=== PATIENT | female | born 1970 | race Caucasian/White ===

== ENCOUNTER 2020-03-24 07:58 | Outpatient (REF) | payer BC, SELFPAY ==
[2020-03-24 11:03] LABS: MANUAL DIFF FLAG NO
[2020-03-24 11:19] LABS: Basophils Percent Auto 0.5 % (0-2); Eosinophils Absolute Auto 0.1 X10*3/uL (0.0-0.4); Eosinophils Percent Auto 3.1 % (0-4); Hematocrit 34.8 % (37-47); Hemoglobin 11.6 g/dl (12.0-16.0); Lymphocytes Absolute Auto 1.8 X10*3/uL (1.2-4.9); Lymphocytes Percent Auto 42.5 % (20-40); Mean Corpuscular HGB Conc 33.3 g/dl (31.0-35.0); Mean Corpuscular Hemoglobin 31.6 pg (27.0-33.0); Mean Corpuscular Volume 94.8 fL (80-98); Mean Platelet Volume 10.2 fL (9.4-12.3); Monocytes Absolute Auto 0.3 X10*3/uL (0.1-1.2); Monocytes Percent Auto 8.1 % (2-11); Neutrophils Absolute Auto 1.9 X10*3/uL (2.0-8.3); Neutrophils Percent Auto 45.8 % (45-73); Platelet Count 174 X10*3/uL (160-400); Red Blood Count 3.67 X10*6/uL (4.20-5.50); Red Cell Distribution Width 13.3 % (11.0-16.0); White Blood Count 4.2 X10*3/uL (4.8-10.8)
[2020-03-24 11:37] LABS: Glucose Urine UA NEG (NEG); Leukocyte Esterase Urine NEG (NEG); Nitrite Urine NEG (NEG); Specific Gravity - Urine 1.025 (1.005-1.025); Urine Blood NEG (NEG); Urine Ketones NEG (NEG); Urine Protein NEG (NEG-TRACE)
[2020-03-24 11:45] LABS: Sodium 139 mmol/L (135-145)
[2020-03-24 11:46] LABS: Alanine Aminotransferase 13 U/L (0-31); Albumin Level 4.3 g/dL (3.5-5.0); Alkaline Phosphatase 44 U/L (39-117); Anion Gap 11 (12-20); Aspartate Amino Transferase 12 U/L (5-31); Bilirubin Total 0.7 mg/dL (0.0-1.0); Blood Urea Nitrogen 22 mg/dL (9-16); Calcium 9.1 mg/dL (8.4-10.2); Carbon Dioxide 28 mmol/L (22-29); Chloride 104 mmol/L (96-108); Cholesterol 170 mg/dL; Estimated Glomerular Filt Rate > 60; Glucose Fasting 89 mg/dL (60-99); HDL Cholesterol 67 mg/dL; LDL Cholesterol Calculated 98 mg/dl; Potassium 4.2 mmol/l (3.3-5.1); Total Protein 6.7 g/dL (6.5-8.0); Triglycerides 29 mg/dL
[2020-03-24 11:47] LABS: Appearance Urine HAZY; Color Urine YELLOW
[2020-03-24 12:08] LABS: Calcium Oxalate Crystals Urine TRACE /LPF; RBC Urine 0-2 /HPF (0); Squamous Epithelial Cell Urine TRACE /LPF; WBC Urine 0 /HPF (0-4)
== END 2020-03-24 07:59 | disposition home or self-care (01) ==
LOC: HO.HMGCLDS 07:58
PROVIDERS: PCP Internal Medicine; Visit Provider Internal Medicine
DX: E78.5 Hyperlipidemia, unspecified (principal)
CPT/HCPCS: 36415; 80053; 80061; 81001; 85025

== ENCOUNTER 2020-03-28 13:10 | Outpatient (REF) | payer BC, SELFPAY ==
[2020-03-28 14:35] LABS: Iron 103 mcg/dL (30-160); Percent Iron Saturation 37 % (15-50); Total Iron Binding Capacity 281 mcg/dL (228-428); Unsaturated Iron Binding 178 ug/dL
[2020-03-28 14:49] LABS: Folate 18.4 ng/mL (> or = 4.0); Vitamin B12 720 pg/mL (200-900)
== END 2020-03-28 13:11 | disposition home or self-care (01) ==
LOC: HO.HMGCLDS 13:10
PROVIDERS: PCP Internal Medicine; Visit Provider Internal Medicine
DX: D64.9 Anemia, unspecified (principal)
CPT/HCPCS: 82607; 82746; 83540

== ENCOUNTER 2021-04-09 11:39 | Outpatient (REF) | payer OTHER, SELFPAY ==
--- NOTE | ~2021-04-09 | US_ITS ---
EXAMINATION: US THYROID CLINICAL INFORMATION: Goiter COMPARISON: None TECHNIQUE: Linear transducer perez-scale and color Doppler examination with attention to the region of the thyroid. FINDINGS: SIZE: Measurements of the thyroid lobes and nodules are given in sagittal, anteroposterior and transverse dimensions respectively. Right Thyroid Lobe: 5.7 x 2.0 x 1.8 cm, volume 10.7 mL. Parenchyma: The gland echotexture is heterogeneous. Thyroid vascularity is increased. Left Thyroid Lobe: 5.7 x 1.6 x 1.9 cm, volume 9.1 mL. Parenchyma: The gland echotexture is heterogeneous. Thyroid vascularity is increased. Isthmus: 0.7 cm in maximum AP dimension. Estimated total number of nodules greater than or equal to 1 cm: 0. Education Manager nodules are described as follows: 1. Location: Left lower medial. Size: 0.4 x 0.3 x 0.4 cm, volume 0.02 mL. Nodule characteristics: Composition: Cystic(0). ACR TI-RADS total points: 0 ACR TI-RADS category: 1 NODES: No lymphadenopathy is seen in the tissue surrounding the thyroid gland. US/US thyroid IMPRESSION: Heterogeneous hypervascular slightly enlarged gland with a single tiny cystic nodule which requires no follow-up. ACR TI-RADS RECOMMENDATION REFERENCE: Ultrasound-guided fine-needle aspiration, followup ultrasound, no further follow up. * TR1 (0 point) and TR 2 (2 points): No FNA or follow up * TR3 (3 points): FNA if more than or equal to 2.5 cm in maximum dimension, followup ultrasound in 1, 3 and 5 years if 1.5 to 2.4 cm in maximum dimension. * TR4 (4-6 points): FNA if more than or equal to 1.5 cm in maximum dimension, followup ultrasound in 1, 2, 3 and 5 years if 1 to 1.4 cm in maximum dimension. * TR5 (more than or equal to 7 points): FNA if more than or equal to 1 cm in maximum dimension, followup ultrasound every year for 5 years if 0.5 to 0.9 cm in maximum dimension. * TR3, TR4 or TR5 nodules that are below the size threshold for follow up receive no follow up.
== END 2021-04-09 11:40 | disposition home or self-care (01) ==
LOC: HO.HMGCX 11:39
PROVIDERS: PCP Internal Medicine; Visit Provider Internal Medicine
DX: E04.9 Nontoxic goiter, unspecified (principal)
CPT/HCPCS: 76536

== ENCOUNTER 2021-05-14 08:44 | Outpatient (REF) | payer OTHER, SELFPAY ==
[2021-05-14 11:49] LABS: Hematocrit 36.7 % (37.0-47.0); Hemoglobin 12.2 g/dl (12.0-16.0); Mean Corpuscular HGB Conc 33.2 g/dl (31.0-35.0); Mean Corpuscular Hemoglobin 31.3 pg (27.0-33.0); Mean Corpuscular Volume 94.1 fL (80.0-98.0); Mean Platelet Volume 10.3 fL (9.4-12.3); Platelet Count 175 X10*3/uL (160-400); Red Cell Distribution Width 13.3 % (11.0-16.0); White Blood Count 4.8 X10*3/uL (4.8-10.8)
[2021-05-14 12:05] LABS: Alanine Aminotransferase 14 U/L (0-31); Albumin Level 4.2 g/dL (3.5-5.0); Alkaline Phosphatase 48 U/L (39-117); Anion Gap 10 (12-20); Aspartate Amino Transferase 14 U/L (5-31); Bilirubin Total 0.5 mg/dL (0.0-1.0); Blood Urea Nitrogen 22 mg/dL (9-16); Calcium 9.4 mg/dL (8.4-10.2); Carbon Dioxide 27 mmol/L (22-29); Chloride 108 mmol/L (96-108); Cholesterol 199 mg/dL; Estimated Glomerular Filt Rate > 60; Glucose Fasting 102 mg/dL (60-99); HDL Cholesterol 63 mg/dL; Iron 88 mcg/dL (30-160); LDL Cholesterol Calculated 128 mg/dl; Percent Iron Saturation 33 % (15-50); Potassium 4.1 mmol/L (3.3-5.1); Sodium 141 mmol/L (135-145); Total Iron Binding Capacity 267 mcg/dL (228-428); Total Protein 6.9 g/dL (6.5-8.0); Triglycerides 44 mg/dL; Unsaturated Iron Binding 179 ug/dL
[2021-05-14 12:25] LABS: TSH reflex Free T4 2.56 uIU/mL (0.32-4.0)
== END 2021-05-14 08:45 | disposition home or self-care (01) ==
LOC: HO.HMGCLDS 08:44
PROVIDERS: Visit Provider Internal Medicine
DX: D64.9 Anemia, unspecified (principal); E78.5 Hyperlipidemia, unspecified
CPT/HCPCS: 36415; 80053; 80061; 83540; 84443; 85027

== ENCOUNTER 2022-06-22 09:20 | Outpatient (REF) | payer OTHER, SELFPAY ==
[2022-06-22 11:19] LABS: MANUAL DIFF FLAG NO
[2022-06-22 11:21] LABS: Appearance Urine Turbid; Color Urine Yellow; Glucose Urine UA Negative (Negative); Leukocyte Esterase Urine Negative (Negative); Nitrite Urine Negative (Negative); UMIC TRIGGER UACC YES; Urine Blood Small (1+) (Negative); Urine Ketones Negative (Negative); Urine Protein Negative (Neg-Trace)
[2022-06-22 11:28] LABS: Basophils Percent Auto 0.7 % (0-2); Eosinophils Absolute Auto 0.1 X10*3/uL (0.0-0.4); Hematocrit 36.1 % (37.0-47.0); Hemoglobin 12.1 g/dl (12.0-16.0); Imm Gran Abs Auto 0.01 X10*3/uL (0.00-0.03); Imm Gran Pct Auto 0.2 % (0.0-0.4); Lymphocytes Absolute Auto 1.6 X10*3/uL (1.2-4.9); Lymphocytes Percent Auto 37.8 % (20-40); Mean Corpuscular HGB Conc 33.5 g/dl (31.0-35.0); Mean Corpuscular Hemoglobin 30.5 pg (27.0-33.0); Mean Corpuscular Volume 90.9 fL (80.0-98.0); Mean Platelet Volume 10.1 fL (9.4-12.3); Monocytes Absolute Auto 0.3 X10*3/uL (0.1-1.2); Monocytes Percent Auto 7.3 % (2-11); Neutrophils Absolute Auto 2.1 x10*3/uL (2.0-8.3); Platelet Count 178 X10*3/uL (160-400); Red Blood Count 3.97 X10*6/uL (4.20-5.50); Red Cell Distribution Width 13.2 % (11.0-16.0); White Blood Count 4.1 X10*3/uL (4.8-10.8)
[2022-06-22 11:29] LABS: Bacteria Urine None Seen (None Seen); Hyaline Casts Urine 0-2 /LPF (0-2); RBC Urine 0-2 /HPF (0-2); Squamous Epithelial Cell Urine 0-2 /HPF (0-2); WBC Urine 0-5 /HPF (0-5)
[2022-06-22 11:44] LABS: Alanine Aminotransferase 15 U/L (0-31); Albumin Level 4.2 g/dL (3.5-5.0); Alkaline Phosphatase 58 U/L (39-117); Anion Gap 10 (12-20); Aspartate Amino Transferase 14 U/L (5-31); Bilirubin Total 0.8 mg/dL (0.0-1.0); Blood Urea Nitrogen 16 mg/dL (9-16); Calcium 8.9 mg/dL (8.4-10.2); Carbon Dioxide 27 mmol/L (22-29); Chloride 107 mmol/L (96-108); Cholesterol 175 mg/dL; Estimated Glomerular Filt Rate > 60; Glucose Fasting 90 mg/dL (60-99); HDL Cholesterol 52 mg/dL; LDL Cholesterol Calculated 115 mg/dl; Potassium 4.3 mmol/L (3.3-5.1); Sodium 140 mmol/L (135-145); Total Protein 6.5 g/dL (6.5-8.0); Triglycerides 43 mg/dL
[2022-06-22 12:16] LABS: Folate 15.8 ng/mL (> or = 4.0); TSH reflex Free T4 1.46 uIU/mL (0.32-4.0); Vitamin B12 553 pg/mL (200-900); Vitamin D 25-OH Total 29.7 ng/mL (>30)
== END 2022-06-22 09:21 | disposition home or self-care (01) ==
LOC: HO.HMGCLDS 09:20
PROVIDERS: PCP Internal Medicine; Visit Provider Internal Medicine
DX: Z00.00 Encounter for general adult medical examination without abnormal findings (principal); E78.5 Hyperlipidemia, unspecified
CPT/HCPCS: 36415; 80053; 80061; 81001; 82306; 82607; 82746; 84443; 85025

== ENCOUNTER 2022-07-06 11:15 | Outpatient (REF) | payer OTHER, SELFPAY ==
[2022-07-06 13:44] LABS: Appearance Urine Turbid; Color Urine Yellow; Glucose Urine UA Negative (Negative); Leukocyte Esterase Urine Negative (Negative); Nitrite Urine Negative (Negative); PH 5.5 (5.0-9.0); Specific Gravity - Urine 1.025 (1.005-1.025); Urine Blood Negative (Negative); Urine Ketones Negative (Negative); Urine Protein Negative (Neg-Trace)
[2022-07-06 13:46] LABS: Bacteria Urine None Seen (None Seen); Hyaline Casts Urine 0-2 /LPF (0-2); RBC Urine 0-2 /HPF (0-2); Squamous Epithelial Cell Urine 0-2 /HPF (0-2); WBC Urine 0-5 /HPF (0-5)
== END 2022-07-06 11:16 | disposition home or self-care (01) ==
LOC: HO.HMGCLDS 11:15
PROVIDERS: PCP Internal Medicine; Visit Provider Internal Medicine
DX: E78.5 Hyperlipidemia, unspecified (principal); R31.29 Other microscopic hematuria
CPT/HCPCS: 81001; 81003

== ENCOUNTER 2022-11-11 12:17 | Outpatient (AMB) | payer OTHER, SELFPAY ==
--- NOTE | 2022-11-11 12:21 | AM.OFFWIN_ITS ---
Intake Vital Signs 11/11/22 12:24 BP 120/88 Blood Pressure Location Lt brachial Position Sitting Pulse 78 Pulse Source Pulse Oximeter Temp 98.4 F Temp Source Temporal Artery Scan Pulse Oximetry (%) 98 Oxygen Delivery Method Room Air Intake Visit Reasons: EP Cough 1 month/Headache, Pain AB/Back Intake Note: Patient here for a cough thats been present for about a month which comes and goes. She states she has sinus pressure and headaches. Patient Tobacco Use Status: Never used Tobacco Allergies codeine Allergy (Unknown, Verified 11/12/22 05:57) vomiting palpitation oxycodone Allergy (Unknown, Verified 11/12/22 05:57) vomiting palpitations metoclopramide [From Reglan] Allergy (Verified 11/12/22 05:57) tingiling on face tylenol with codeine Allergy (Mild, Uncoded 11/12/22 05:57) vomiting contrast Allergy (Uncoded 11/12/22 05:57) Hives Medication List - Last Reconciled 11/12/22 by Gopal Sheikh MD azelastine intranasal azithromycin take 500 mg today (day 1), then 250 mg for 4 days (days 2-5) PO famotidine 40 mg PO DAILY multivitamin 1 tab PO DAILY prednisone 60 mg (3 x 20 mg) PO DAILY Do you need a note to return to daycare/school/sports/work: Yes HPI EP Cough 1 month/Headache, Pain AB/Back HPI Details 52-year-old female presents to the office for a sick visit. Patient is reporting symptoms of productive cough for the past 2 weeks. Postnasal drip is present. No fevers or chills. 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 No shortness of breath. Tested negative for COVID. [facility] Medical History Abdominal pain Allergies Anemia Annual physical exam Asthma Cough Enlarged thyroid Hemorrhoids Hyperlipemia Hyperlipidemia IBS (irritable bowel syndrome) Lymphadenopathy, abdominal Surgical History H/O colonoscopy H/O spinal fusion No pertinent past surgical history Family History Father No problems noted. Mother HTN (hypertension) Maternal Grandmother Breast cancer Paternal Grandmother Colon cancer Social History Housing: House Alcohol intake: current Alcohol intake frequency: holidays/special occasions only Patient Tobacco Use Status: Never used Tobacco e-Cigarette/Vaping Use: Never Used Current occupational status: employed Cognitive needs: No Hearing needs: No Vision needs: Yes Physical Exam Vital Signs: Last Vital Signs Temp 98.4 F 11/11/22 12:24 Pulse 78 11/11/22 12:24 BP 120/88 11/11/22 12:24 Pulse Ox 98 11/11/22 12:24 Oxygen Delivery Method Room Air 11/11/22 12:24 Const General: cooperative and healthy appearing Nutritional Appearance: well nourished Orientation/consciousness: patient oriented x3 Limitations: no limitations HEENT Head: Yes normal to inspection Eyes General: appearance normal, both eyes and all related structures Neck Neck: Yes normal visual inspection Chest Chest palpation & inspection: normal palpation of entire chest wall Resp Effort & Inspection: normal respiratory effort Neuro General: patient oriented x3 Assessment & Plan Assessment & Plan (1) Upper respiratory tract infection: Code(s): J06.9 - Acute upper respiratory infection, unspecified Plan: Antibiotics ordered. Increase fluid intake. Tylenol for aches and pains. If symptoms worsen, follow-up here for a recheck. Medications: New azithromycin take 500 mg today (day 1), then 250 mg for 4 days (days 2-5) PO 6 tabs 0RF prednisone 60 mg (3 x 20 mg) PO DAILY 9 tabs 0RF Coding Level of Care Code Est Pt Level 3 (63525) Diagnoses Upper respiratory tract infection J06.9
[2022-11-11 12:24] VITALS: BP 120/88; PULSE 78; TEMP 36.9; O2SAT 98
== END 2022-11-11 13:51 | disposition home or self-care (01) ==
PROVIDERS: PCP Internal Medicine; Visit Provider Internal Medicine
DX: J06.9 Acute upper respiratory infection, unspecified (principal)
CPT/HCPCS: 99213

== ENCOUNTER 2023-01-02 09:51 | Outpatient (AMB) | payer OTHER, SELFPAY ==
--- NOTE | 2023-01-02 09:55 | A.OFFVIS_ITS ---
Intake Vital Signs 01/02/23 09:56 Height 5 ft 6 in Weight 211 lb 13.828 oz BMI 34.2 BP 126/72 Blood Pressure Location Lt brachial Position Sitting Pulse 71 Pulse Source Pulse Oximeter Temp 97.9 F Temp Source Skin Pulse Oximetry (%) 98 Oxygen Delivery Method Room Air Intake Visit Reasons: Pain in unspecified joint Intake Note: New patient here for unspecified joint pains. c/o chel hand tinggling, upper back tingling Aerospace Medicine Physician Required: No Accompanied by: Self / Same As Patient Allergies codeine Allergy (Unknown, Verified 01/02/23 09:56) vomiting palpitation oxycodone Allergy (Unknown, Verified 01/02/23 09:56) vomiting palpitations metoclopramide [From Reglan] Allergy (Verified 01/02/23 09:56) tingiling on face tylenol with codeine Allergy (Mild, Uncoded 01/02/23 09:56) vomiting contrast Allergy (Uncoded 01/02/23 09:56) Hives Medication List - Last Reconciled 01/02/23 by [place] MD azelastine intranasal famotidine 40 mg PO DAILY multivitamin 1 tab PO DAILY HPI HPI Comments History of Present Illness Details The patient presents for evaluation of discomfort in her hands. Mostly she describes this as pain over the PIP joints in the left hand. Occasionally she has noted similar pains in the right hand. She also feels that the sensation in the left 2nd through 4th fingers does not always seem normal. There is a distant history, 15 years ago, of carpal tunnel release surgery and she does not think the current symptoms were similar. She also gets some pain across the MTP joints at times with some leg swelling. She has had some neck stiffness as well that was helped with career services coordinator and massage. The discomfort in the fingers seems to be better this month after the neck massage. There was no injury to the hands that she can recall. She does not experience any color change or triggering. Four years ago she had low back pain radiating down the left leg. This was helped with lumbar disc surgery. She presently uses some [id number] creams for the hands. [facility] Medical History (Updated 01/02/23 @ 10:33 by [place] MD) Annual physical exam Asthma Enlarged thyroid Cough Allergies Anemia Lymphadenopathy, abdominal IBS (irritable bowel syndrome) Abdominal pain Hyperlipemia Hyperlipidemia Hemorrhoids Surgical History (Updated 01/02/23 @ 10:04 by TOMASA Contreras) Hx of carpal tunnel repair H/O spinal fusion H/O colonoscopy No pertinent past surgical history Family History (Updated 01/02/23 @ 10:02 by TOMASA Contreras) Father No problems noted. 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 She thinks this is stimulated by occasional courses of prednisone for allergy symptoms. There is also some intermittent sweating during the day. Negative for appetite change, fever, chills, malaise and fatigue Eyes Details: Occasional itchy eyes. Negative for vision change, dry eyes,headaches and dizziness ENT Details: Negative for hearing change, tinnitus, oral ulcer, nose bleeds and oral dryness. Card Details: Negative chest pain, edema and syncope Resp Details: Negative for SOB, cough and wheezing GI Details: Negative indigestion/heartburn, nausea, abdominal pain, bowel changes, diarrhea, constipation and bloody stool. Details: Negative for dysuria, hematuria, nocturia, decreased force/flow and genital discharge Skin/Breast Details: Negative for itching, rash, hives, Raynaud's symptoms, sun sensitivity, and skin cancer Neuro Details: Occasional left hand tingling. Negative for epilepsy, palsy, stroke, changes in speech and weakness Psych Details: Negative for anxiety, depression and stress Endo Details: Negative for polyuria and polydypsia Yoni/Lymph Details: Negative for excessive bruising or bleeding. Physical Exam Vital Signs: Last Vital Signs Temp 97.9 F 01/02/23 09:56 Pulse 71 01/02/23 09:56 BP 126/72 01/02/23 09:56 Pulse Ox 98 01/02/23 09:56 Oxygen Delivery Method Room Air 01/02/23 09:56 BMI result Body Mass Index 34.2 APPEARANCE: Patient in no acute distress EYES no redness, pupils equal and reactive to light, eyelids normal EARS: External ear normal, canal clear and tympanic membrane normal. NOSE/SINUS: Airflow through both nares, no nasal discharge, no bleeding THROAT: Oral mucosa moist, no ulcerations NECK: No thyromegaly or masses, no adenopathy, trachea midline. HEART: Regulrar rhythm, S1-S2 heard, no murmurs, rubs or gallops. LUNG: Clear to percussion and auscultation ABD: Normal bowel sounds, no organomegaly, masses or tenderness. EXTREMITIES: Trace ankle and pedal edema. Now calf tenderness, normal peripheral pulses. NEURO: Oriented and alert x3. No focal weakness. Reflexes symmetric. Gait normal. SKIN: No inflammatory or neoplastic lesions. Normal color and turgor JOINT EXAM:.?? Cervical Spine:.? Full range of motion with mild discomfort at the extremes. No tenderness. Thoracic Spine:.? No scoliosis.? No tenderness on palpation. Lumbar Spine:.? Alignment normal.? Full range of motion without pain, no tenderness. Chest Wall:.? No tenderness, swelling, increased warmth or erythema. Hands:.? Right: Normal pain-free range of motion without tenderness, swelling, increased warmth or erythema. No thenar atrophy or sensory loss. Left: Pain- free range of motion. There is some minimal tenderness at the 2nd through 4th PIP and the 2nd 3rd PIP joints. No swelling however is appreciated. There is questionable sensory loss at the tip of the 2nd 3rd fingers. There is no apparent weakness. No muscle atrophy. Wrists:.? Normal pain-free range of motion without tenderness, swelling, increased warmth or erythema. Negative Phalen's sign. Elbows:. Normal pain-free range of motion without tenderness, swelling, increased warmth or erythema. Shoulders:.?? Full range of motion without pain. No tenderness, weakness, swelling, increased warmth or erythema. Hips:.? Full range of motion without pain. Hip bursa:.? No tenderness. Knees:.?? Normal pain-free range of motion with slight patellofemoral crepitus. No effusion, tenderness, swelling, increased warmth or erythema.? Ankles:.? Normal pain-free range of motion without tenderness, swelling, increased warmth or erythema. Feet: Left: Normal pain-free range of motion with right some slight tenderness in the instep and the 2nd and 3rd MTP joints. These areas are not red or swollen. No other areas of tenderness. Right: Normal pain-free range of motion without tenderness,joint swelling, increased warmth or erythema. Tender points:.? No tenderness to digital palpation at the occiput, trapezius, second rib, lateral epicondyle, knees, greater trochanter and gluteal area bilaterally. ? Assessment & Plan Assessment & Plan (1) Paresthesia of finger: Code(s): R20.2 - Paresthesia of skin (2) Bilateral hand pain: Code(s): M79.641 - Pain in right hand; M79.642 - Pain in left hand Plan The patient has a few months of hand symptoms consisting mostly of some pain in the fingers more on the left hand than the right. There is also some dysesthesias or paresthesias in the left hand. Exam shows the joints to be tender but no swelling. This was suggested early arthropathy; the location would suggest some early osteoarthritis. The numbness could be some nerve entrapment from her previously diagnosed carpal tunnel syndrome or another area of nerve entrapment in the left upper extremity or cervical spine. Her symptoms seem to be improving at this point so I do not think it needs to be pursued but if continues or worsens further workup in Neurology would be appropriate. I will check for some markers of inflammation, rheumatoid factor and CCP antibody. We will get back to her with the results. She will return if she starts to get swelling and or more pain in the hands. Orders: Orders Erythrocyte Sedimentation Rate Today M79.641 - Pain in right hand, M79.642 - Pain in left hand C Reactive Protein Today M79.641 - Pain in right hand, M79.642 - Pain in left hand Cyclic Citrullinated Peptide Today M79.641 - Pain in right hand, M79.642 - Pain in left hand Rheumatoid Factor Today M79.641 - Pain in right hand, M79.642 - Pain in left hand Coding Level of Care Code New Pt Level 3 (76796) Diagnoses Paresthesia of finger R20.2 Bilateral hand pain M79.641; M79.642
[2023-01-02 09:56] VITALS: BP 126/72; PULSE 71; TEMP 36.6; O2SAT 98; BMI 34.2
== END 2023-01-02 10:48 | disposition home or self-care (01) ==
PROVIDERS: PCP Internal Medicine; Visit Provider Internal Medicine Rheumatology
DX: R20.2 Paresthesia of skin (principal); M79.641 Pain in right hand; M79.642 Pain in left hand
CPT/HCPCS: 99203

== ENCOUNTER 2023-01-02 09:51 | Outpatient (REF) | payer OTHER, SELFPAY ==
[2023-01-02 12:37] LABS: Rheumatoid Factor < 13.0 IU/mL (<15.0)
[2023-01-02 12:46] LABS: C Reactive Protein 0.64 mg/dL (< or = 0.50)
[2023-01-02 12:51] LABS: Erythrocyte Sedimentation Rate 14 MM/HR (0-20)
[2023-01-06 16:24] LABS: Cyclic Citrullinated Peptide <16 UNITS
== END 2023-01-02 09:52 | disposition home or self-care (01) ==
LOC: HO.LAB 09:51
PROVIDERS: PCP Internal Medicine; Visit Provider Internal Medicine Rheumatology
DX: R20.2 Paresthesia of skin (principal); M79.641 Pain in right hand; M79.642 Pain in left hand
CPT/HCPCS: 36415; 85652; 86140; 86200; 86431

== ENCOUNTER 2023-01-04 11:27 | Outpatient (AMB) | payer OTHER, SELFPAY ==
[2023-01-04 13:05] VITALS: BP 140/80; PULSE 87; TEMP 36.6; O2SAT 99; BMI 34.1
--- NOTE | 2023-01-04 13:05 | AM.OFFWIN_ITS ---
Intake Vital Signs 01/04/23 13:05 Height 5 ft 6 in Weight 211 lb BMI 34.1 BP 140/80 H Blood Pressure Location Rt brachial Position Sitting Pulse 87 Pulse Source Pulse Oximeter Temp 97.8 F Temp Source Temporal Artery Scan Pulse Oximetry (%) 99 Intake Visit Reasons: EST/continuous cough Intake Note: pt is here for c/o continuous cough Patient Tobacco Use Status: Never used Tobacco Allergies codeine Allergy (Unknown, Verified 01/04/23 13:06) vomiting palpitation oxycodone Allergy (Unknown, Verified 01/04/23 13:06) vomiting palpitations metoclopramide [From Reglan] Allergy (Verified 01/04/23 13:06) tingiling on face tylenol with codeine Allergy (Mild, Uncoded 01/02/23 09:56) vomiting contrast Allergy (Uncoded 01/02/23 09:56) Hives Do you need a note to return to daycare/school/sports/work: Yes HPI EST/continuous cough HPI Details Patient is a 52-year-old female who comes to the walk-in clinic complaining of acute onset of persistent cough, that sometimes turns into coughing fits and causes phlegm production that she can get back/vomit with. She has had multiple episodes of this, with this being her 2nd 1 in the past year. Apparently the last episode was only about 3 months ago however, and she was written for prednisone which cleared the reactive cough symptoms. She states that she has had full GI workup and a partial allergy workup to help discover the etiology for the cough. She is diagnosed with GERD, but it was not found inconclusive that this was the underlying etiology or associated cause of the cough. She takes famotidine and is supposed to be maintaining strict diet, although she minutes to dietary indiscretions. She states that she is already aware of this, and plans to be stricter for here on out. She had a limited allergy workup, however she is not doing applied she shots as her insurance fell through with her specialists. She is currently trying to figure out if she can still see the specialist. She does still take daily oral allergy medication, and allergies have been considered the likely trigger for this, possibly food related, although allergy workup has so far been unrevealing and limited. No shortness of breath, difficulty swallowing or eating, nausea or diarrhea, blood in the vomit or stool, coffee-ground stool, urinary symptoms, runny nose or sore throat, itchy eyes, ear pain or discharge, chest pain, abdominal pain, drooling, or other significant associated symptoms. [facility] Medical History (Updated 01/06/23 @ 11:19 by JUAN C Goins) Annual physical exam Asthma Enlarged thyroid Cough Allergies Anemia Lymphadenopathy, abdominal IBS (irritable bowel syndrome) Abdominal pain Hyperlipemia Hyperlipidemia Hemorrhoids Surgical History (Updated 01/02/23 @ 10:04 by TOMASA Contreras) Hx of carpal tunnel repair H/O spinal fusion H/O colonoscopy No pertinent past surgical history Family History (Updated 01/02/23 @ 10:02 by TOMASA Contreras) Father No problems noted. 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 Cognitive needs: No Hearing needs: No Vision needs: Yes Review of Systems Const All systems reviewed & are unremarkable except as noted in HPI and below Physical Exam Vital Signs: Last Vital Signs Temp 97.8 F 01/04/23 13:05 Pulse 87 01/04/23 13:05 BP 140/80 H 01/04/23 13:05 Pulse Ox 99 01/04/23 13:05 BMI result Body Mass Index 34.1 Const General: cooperative, healthy appearing, comfortable, no acute distress, alert, awake, Physically active and well groomed; No anxious, diaphoretic, ill appearing, intoxicated appearing, poor hygiene or tired appearing Nutritional Appearance: average body habitus Limitations: no limitations HEENT Head: Yes normal to inspection, Yes normocephalic and Yes atraumatic Face and sinus: Yes normal facial exam, Yes sinuses nontender and Yes face symmetric Mouth: Normal oral and palatal mucosa present, lip normal and tongue normal Throat: Yes posterior oropharynx normal, No peritonsillar mass, No postnasal drainage, No uvular edema and No cobblestoning Eyes General: appearance normal, both eyes and all related structures Neck Neck: Yes normal visual inspection, Yes no lymphadenopathy, Yes trachea midline, Yes supple and No anterior neck swelling Chest Chest palpation & inspection: normal palpation of entire chest wall Resp Effort & Inspection: normal respiratory effort, able to speak in complete sentences, no audible wheezes, Actively coughing (She did have frequent coughing, and 1 coughing fit) Quality: actively coughing, no grunting, not labored, no nasal flaring, no retractions and symmetric chest movement Auscultation: clear to auscultation bilaterally, no crackles, no rales, no rhonchi, no wheezes, lung sounds not diminished and No rub present Cardio Rate: regular rate Rhythm: regular rhythm Skin Other: Good color, warm and dry Psych Appearance: grossly normal Mental Status: mental status grossly normal Speech and movement: Normal speech and movement present Affect: normal affect Attitude: cooperative Thought process: Normal thought process present Insight: Good insight present (Psych) Judgement: Good judgement present (Psych) Assessment & Plan Assessment & Plan (1) Cough: Code(s): R05.9 - Cough, unspecified Qualifiers: Cough type: acute Qualified Code(s): R05.1 - Acute cough Plan: Patient has had acute exacerbation of a reactive cough that she has experienced multiple times in the past. Apparently after an almost complete workup, it has been determined to be likely triggered by allergies that are possibly food related, although allergy workup was so far unrevealing and she has had trouble seeing fire technician again due to insurance issue. However she has had a full GI workup that did result in famotidine being taken daily for presumed GERD, along with restrictive diet. She states that she has not been as compliant recently with the diet, and we discussed adhering to that starting today. She is overall stable, with no other symptoms of anaphylaxis or respiratory distress and except for the cough does not have a toxic appearance. Her oxygen saturation is 99% on room air, and there was no evidence of airway compromise, no difficulty breathing and lung sounds are clear. We discussed that likely she had a dietary indiscretion that flared up her symptoms. She will start restricting her diet better, and a short course of prednisone was prescribed today, as this has apparently resolved the issue for her for a few months at a time in the past. She can also continue her allergy medication. She takes albuterol as needed with the symptoms also, and this was refilled for her today. She plans to follow-up with fire technician, as well as considering seeing a new GI specialist to continue evaluation. She knows she can return to the walk-in or go to the emergency department sooner in the meantime if symptoms persist or worsen. Medications: New albuterol sulfate 90 mcg/actuation 1 inh inhalation QID PRN 8.5 grams 0RF shortness of breath or wheezing prednisone 40 mg (2 x 20 mg) PO DAILY 5 days 10 tabs 0RF Coding Level of Care Code Est Pt Level 4 (66736) Diagnoses Acute cough R05.1 Cough type: acute
== END 2023-01-04 14:20 | disposition home or self-care (01) ==
PROVIDERS: PCP Internal Medicine; Visit Provider Physician Assistant Medical
DX: R05.1 Acute cough (principal)
CPT/HCPCS: 99051; 99214

== ENCOUNTER 2023-03-13 13:43 | Outpatient (AMB) | payer OTHER, SELFPAY ==
[2023-03-13 13:45] VITALS: BP 120/74; PULSE 92; O2SAT 97; BMI 35.3
--- NOTE | 2023-03-13 13:45 | A.OFFPC_ITS ---
Vital Signs 03/13/23 13:45 Height 5 ft 6 in Weight 219 lb BMI 35.3 BP 120/74 Blood Pressure Location Lt brachial Position Sitting Pulse 92 Pulse Source Pulse Oximeter Pulse Oximetry (%) 97 Oxygen Delivery Method Room Air Intake Visit Reasons: Follow up on ongoing dry cough Intake Note: Pt is here today for a follow up visit on going cough. Allergies codeine Allergy (Unknown, Verified 03/13/23 13:49) vomiting palpitation oxycodone Allergy (Unknown, Verified 03/13/23 13:49) vomiting palpitations metoclopramide [From Reglan] Allergy (Verified 03/13/23 13:49) tingiling on face doxycycline Adverse Reaction (Verified 03/13/23 13:49) nausea vomiting tylenol with codeine Allergy (Mild, Uncoded 03/13/23 13:49) vomiting contrast Allergy (Uncoded 03/13/23 13:49) Hives Medication List - Last Reconciled 03/13/23 by Samira Rocha MD albuterol sulfate 90 mcg/actuation 1 inh inhalation QID PRN azelastine intranasal famotidine 40 mg PO DAILY multivitamin 1 tab PO DAILY prednisone 40 mg (2 x 20 mg) PO DAILY 5 days Tobacco use date assessed: 03/13/23 Dental Screening Dental Screen Date: 03/13/23 Did you have a dental visit in the last 12 months?: Yes Did you have a dental problem in the last 6 months where you did not have access to dental care?: No Was dental information given to patient?: Patient has dentist HPI Follow up on ongoing dry cough HPI Details Pt presents for f/u of chronic intermittent cough for >5 years. She was seen by pulmonology and allergy with full workup. Pt gets relief with a short (5 days) course of Prednisone for 2-3 months. She tried hypnosis and was symptoms free for 5 years. Pt was dxd with mild hiatal hernia and GERD and has been taking Pepcid. [facility] Medical History (Updated 03/13/23 @ 15:17 by Samira Rocha MD) Annual physical exam Asthma Enlarged thyroid Cough Allergies Anemia Lymphadenopathy, abdominal IBS (irritable bowel syndrome) Abdominal pain Hyperlipemia Hyperlipidemia Hemorrhoids Surgical History Hx of carpal tunnel repair H/O spinal fusion H/O colonoscopy No pertinent past surgical history Family History Father No problems noted. 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 How often do you have a drink containing alcohol?: Monthly or less 2. How many drinks containing alcohol do you have on a typical day when you are drinking?: 1 or 2 3. How often do you have six or more drinks on one occasion?: Never Total Score: 1 ALVERTO-7 AMB Questionnaire ALVERTO-7 Date ALVERTO - 7 assessed: 06/20/22 Feeling nervous, anxious, or on edge: 0 = Not at all Not being able to stop or control worryin = Not at all Worrying too much about different things: 0 = Not at all Trouble relaxin = Not at all Being so restless that it is hard to sit still: 0 = Not at all Becoming easily annoyed or irritable: 0 = Not at all Feeling afraid as if something awful might happen: 0 = Not at all Total ALVERTO-7 score (0-4 normal; 5-9 mild; 10-14 moderate; 15-21 severe): 0 Source: Developed by Drs. Arnold Kilgore, Viry Cabrera, David Hall and colleagues, with an educational miguelangel from [employer]. Review of Systems Const All systems reviewed & are unremarkable except as noted in HPI and below Reports no additional complaints Eyes Reports no additional complaints ENT Reports no additional complaints Card Reports no additional complaints Resp Reports no additional complaints GI Reports no additional complaints Physical exam (Primary Care) Vital Signs: Last Vital Signs Pulse 92 03/13/23 13:45 BP 120/74 03/13/23 13:45 Pulse Ox 97 03/13/23 13:45 Oxygen Delivery Method Room Air 03/13/23 13:45 BMI result Body Mass Index 35.3 Tobacco/Smoking Status: Tobacco use Status Tobacco use date assessed 03/13/23 03/13/23 13:49 Patient Tobacco Use Status Never used Tobacco 03/13/23 13:49 e-Cigarette/Vaping Use Never Used 03/13/23 13:49 Thrive Assessment: Date of Thrive Assessment Date Thrive assessed 06/20/22 03/13/23 13:49 Const General: no acute distress HENMT Face and sinus: Yes normal facial exam Throat: Yes posterior oropharynx normal Eyes General: appearance normal, both eyes and all related structures Resp Effort & Inspection: normal respiratory effort Auscultation: clear to auscultation bilaterally Cardio Rhythm: regular rhythm Heart sounds: S1 normal heart sound present and S2 normal heart sound present GI Palpation (GI): Soft to palpation Assessment and Plan Assessment & Plan (1) Hyperlipemia: Code(s): E78.5 - Hyperlipidemia, unspecified Plan: low cholesterol diet (2) Cough: Comment: >7 years, intermittent, no known triggers. Negative pulmonary/allergy/ENT evaluation , hypnosis was effective for 5 years Code(s): R05.9 - Cough, unspecified Qualifiers: Cough type: acute Qualified Code(s): R05.1 - Acute cough Plan: trial of Breo 100 for 2 weeks, if not effective repeat short course of Prednisone. Pt declined referral to pulmonology Orders: Orders Complete Blood Count Auto Diff Today E78.5 - Hyperlipidemia, unspecified Lipid Panel Today E78.5 - Hyperlipidemia, unspecified Comprehensive [place]. Panel Fast Today E78.5 - Hyperlipidemia, unspecified TSH reflex Free T4 Today E78.5 - Hyperlipidemia, unspecified Medications: New fluticasone furoate-vilanterol 100-25 mcg/dose (Breo Ellipta) 1 inh inhalation DAILY 60 ea 2RF Refilled prednisone 40 mg (2 x 20 mg) PO DAILY 10 tabs 0RF 5 days Coding Level of Care Code Est Pt Level 4 (55136) Diagnoses Hyperlipemia E78.5 Acute cough R05.1 Cough type: acute
== END 2023-03-13 15:17 | disposition home or self-care (01) ==
PROVIDERS: PCP Internal Medicine; Visit Provider Internal Medicine
DX: E78.5 Hyperlipidemia, unspecified (principal); R05.1 Acute cough
CPT/HCPCS: 99214

== ENCOUNTER 2023-06-07 07:46 | Outpatient (REF) | payer OTHER, SELFPAY ==
[2023-06-07 11:06] LABS: MANUAL DIFF FLAG NO
[2023-06-07 11:15] LABS: Basophils Percent Auto 0.7 % (0-2); Eosinophils Absolute Auto 0.2 X10*3/uL (0.0-0.4); Hematocrit 36.7 % (37.0-47.0); Hemoglobin 12.5 g/dl (12.0-16.0); Lymphocytes Absolute Auto 1.7 X10*3/uL (1.2-4.9); Lymphocytes Percent Auto 40.7 % (20-40); Mean Corpuscular HGB Conc 34.1 g/dl (31.0-35.0); Mean Corpuscular Hemoglobin 31.4 pg (27.0-33.0); Mean Corpuscular Volume 92.2 fL (80.0-98.0); Mean Platelet Volume 10.3 fL (9.4-12.3); Monocytes Absolute Auto 0.3 X10*3/uL (0.1-1.2); Monocytes Percent Auto 6.9 % (2-11); Neutrophils Percent Auto 47.7 % (45-73); Platelet Count 212 X10*3/uL (160-400); Red Blood Count 3.98 X10*6/uL (4.20-5.50); Red Cell Distribution Width 13.1 % (11.0-16.0); White Blood Count 4.2 X10*3/uL (4.8-10.8)
[2023-06-07 11:36] LABS: Alanine Aminotransferase 18 U/L (0-31); Albumin Level 4.3 g/dL (3.5-5.0); Alkaline Phosphatase 63 U/L (39-117); Anion Gap 12 (12-20); Aspartate Amino Transferase 17 U/L (5-31); Bilirubin Total 0.5 mg/dL (0.0-1.0); Blood Urea Nitrogen 13 mg/dL (9-16); Calcium 9.5 mg/dL (8.4-10.2); Carbon Dioxide 25 mmol/L (22-29); Chloride 107 mmol/L (96-108); Cholesterol 156 mg/dL (<200); Estimated Glomerular Filt Rate > 60; Glucose Fasting 93 mg/dL (60-99); HDL Cholesterol 58 mg/dL (>40); LDL Cholesterol Calculated 89 mg/dL (<100); Sodium 140 mmol/L (135-145); Total Protein 7.2 g/dL (6.5-8.0); Triglycerides 48 mg/dL (<150)
[2023-06-07 11:55] LABS: TSH reflex Free T4 1.31 uIU/mL (0.32-4.0)
== END 2023-06-07 07:47 | disposition home or self-care (01) ==
LOC: HO.HMGCLDS 07:46
PROVIDERS: PCP Internal Medicine; Visit Provider Internal Medicine
DX: E78.5 Hyperlipidemia, unspecified (principal)
CPT/HCPCS: 36415; 80053; 80061; 84443; 85025

== ENCOUNTER 2023-06-26 08:06 | Outpatient (AMB) | payer OTHER, SELFPAY ==
--- NOTE | 2023-06-26 08:10 | A.OFFPC_ITS ---
Vital Signs 06/26/23 08:11 Height 5 ft 6 in Weight 204 lb BMI 32.9 BP 122/80 Blood Pressure Location Lt brachial Position Sitting Pulse 93 Pulse Source Pulse Oximeter Pulse Oximetry (%) 97 Oxygen Delivery Method Room Air Intake Visit Reasons: PE Intake Note: Pt is here today for PE. Allergies codeine Allergy (Unknown, Verified 06/26/23 08:15) vomiting palpitation oxycodone Allergy (Unknown, Verified 06/26/23 08:15) vomiting palpitations metoclopramide [From Reglan] Allergy (Verified 06/26/23 08:15) tingiling on face doxycycline Adverse Reaction (Verified 06/26/23 08:15) nausea vomiting tylenol with codeine Allergy (Mild, Uncoded 06/26/23 08:15) vomiting contrast Allergy (Uncoded 06/26/23 08:15) Hives Medication List - Last Reconciled 06/26/23 by Samira Rocha MD albuterol sulfate 90 mcg/actuation 1 inh inhalation QID PRN azelastine intranasal famotidine 40 mg PO DAILY fluticasone furoate-vilanterol 100-25 mcg/dose (Breo Ellipta) 1 inh inhalation DAILY multivitamin 1 tab PO DAILY valacyclovir 2,000 mg (2 x 1 gram) PO Q12H 1 day Tobacco use date assessed: 06/26/23 Dental Screening Dental Screen Date: 06/26/23 Did you have a dental visit in the last 12 months?: Yes Did you have a dental problem in the last 6 months where you did not have access to dental care?: No Was dental information given to patient?: Patient has dentist HPI PE HPI Details Pt presents for PE. [facility] Medical History (Updated 06/26/23 @ 12:18 by Samira Rocha MD) Annual physical exam Asthma Enlarged thyroid Cough Allergies Anemia Lymphadenopathy, abdominal IBS (irritable bowel syndrome) Abdominal pain Hyperlipemia Hyperlipidemia Hemorrhoids Surgical History Hx of carpal tunnel repair H/O spinal fusion H/O colonoscopy No pertinent past surgical history Family History Father No problems noted. 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 1. Little interest or pleasure in doing things: not at all 2. Feeling down, depressed, or hopeless: not at all 3. Trouble falling or staying asleep, or sleeping too much: not at all 4. Feeling tired or having little energy: not at all 5. Poor appetite or overeating: not at all 6. Feeling bad about yourself - or that you are a failure or have let yourself or your family down: not at all 7. Trouble concentrating on things, such as reading the newspaper or watching television: not at all 8. Moving or speaking so slowly that other people could have noticed. Or the opposite - being so fidgety or restless that you have been moving around a lot more than usual: not at all 9. Thoughts that you would be better off or of hurting yourself in some way: not at all Total score: 0 Depression Screening Interpretation: Negative Depression Screening Done: Yes Source: Developed by Drs. Arnold Kilgore, Viry Cabrera, David Hall and colleagues, with an educational miguelangel from [employer]. Thrive Questionnaire Date Thrive assessed: 06/26/23 I am a: Patient What is your living situation today?: I have a steady place to live Within the past 12 months, did the food you bought not last and you didn't have the money to get more?: Never true Within the past 12 months, did you worry whether your food would run out before you got money to buy more?: Never true Do you have trouble paying for medicines?: No Do you have trouble getting transportation to medical appointments?: No Do you have trouble paying your heating and electricity bill?: No Do you have trouble taking care of your child, family member or friend?: No Do you have trouble with day-to-day activities such as bathing, preparing meals, shopping, managing finances, etc.?: No Are you currently unemployed and looking for a job?: No Are you interested in more education?: No Please select the resources that you would like help with: None THRIVE Score: 0 AUDIT C Alcohol Use Questionnaire (AUDIT-C) 1. How often do you have a drink containing alcohol?: Monthly or less 2. How many drinks containing alcohol do you have on a typical day when you are drinking?: 1 or 2 3. How often do you have six or more drinks on one occasion?: Never Total Score: 1 ALVERTO-7 AMB Questionnaire ALVERTO-7 Date ALVERTO - 7 assessed: 06/26/23 Feeling nervous, anxious, or on edge: 0 = Not at all Not being able to stop or control worryin = Not at all Worrying too much about different things: 0 = Not at all Trouble relaxin = Not at all Being so restless that it is hard to sit still: 0 = Not at all Becoming easily annoyed or irritable: 0 = Not at all Feeling afraid as if something awful might happen: 0 = Not at all Total ALVERTO-7 score (0-4 normal; 5-9 mild; 10-14 moderate; 15-21 severe): 0 Source: Developed by Drs. Arnold Kilgore, Viry Cabrera, David Hall and colleagues, with an educational miguelangel from [employer]. Review of Systems Const All systems reviewed & are unremarkable except as noted in HPI and below Reports no additional complaints Eyes Reports no additional complaints ENT Reports no additional complaints Card Reports no additional complaints Resp Reports no additional complaints GI Reports no additional complaints Reports no additional complaints Physical exam (Primary Care) Vital Signs: Last Vital Signs Pulse 93 06/26/23 08:11 BP 122/80 06/26/23 08:11 Pulse Ox 97 06/26/23 08:11 Oxygen Delivery Method Room Air 06/26/23 08:11 BMI result Body Mass Index 32.9 Tobacco/Smoking Status: Tobacco use Status Tobacco use date assessed 06/26/23 06/26/23 08:18 Patient Tobacco Use Status Never used Tobacco 06/26/23 08:18 e-Cigarette/Vaping Use Never Used 06/26/23 08:18 PHQ-9: PHQ-9 Score PHQ-9: Total score 0 06/26/23 08:39 Depression Screening Interpretation: Negative Thrive Assessment: Date of Thrive Assessment Date Thrive assessed 06/26/23 06/26/23 08:18 Const General: no acute distress HENMT Head: Yes normal to inspection Ears: hearing grossly normal bilaterally General nose exam: Normal external nose present Face and sinus: Yes normal facial exam Throat: Yes posterior oropharynx normal Eyes General: appearance normal, both eyes and all related structures Neck Neck: Yes no lymphadenopathy and Yes supple Resp Effort & Inspection: normal respiratory effort Auscultation: clear to auscultation bilaterally Cardio Rhythm: regular rhythm Heart sounds: S1 normal heart sound present and S2 normal heart sound present GI Inspection: Yes normal to inspection Palpation (GI): Soft to palpation Percussion: Yes normal to percussion Auscultation: normal bowel sounds Assessment and Plan Assessment & Plan (1) Annual physical exam: Code(s): Z00. - Encounter for general adult medical examination without abnormal findings Plan: Well-balanced diet regular physical activity discussed with the patient she is up-to-date with mammogram Pap smear and colonoscopy (2) Asthma: Code(s): J45.909 - Unspecified asthma, uncomplicated Plan: Patient has been using albuterol as needed usually less than twice a month. She will be referred to product marketing engineer for a chronic cough for years. Patient used to see a product marketing engineer at [facility]. (3) Cough: Comment: >7 years, intermittent, no known triggers. Negative pulmonary/allergy/ENT evaluation , hypnosis was effective for 5 years Code(s): R05.9 - Cough, unspecified Qualifiers: Cough type: acute Qualified Code(s): R05.1 - Acute cough Plan: See above (4) Allergies: Comment: Getting immunotherapy once a month Code(s): T78.40XA - Allergy, unspecified, initial encounter Plan: Follow-up with the lab scientist for immunotherapy Orders: Orders REENA Arteaga Today Z00.00 - Encounter for general adult medical examination without abnormal findings Referrals Pulmonary Medicine Referral J45.909 - Unspecified asthma, uncomplicated Medications: New famotidine 40 mg PO DAILY 90 tabs 3RF Refilled valacyclovir 2,000 mg (2 x 1 gram) PO Q12H 4 tabs 5RF 1 day Coding Level of Care Code Est Pt Prev Care 40-64y(41367) Diagnoses Annual physical exam Z00.00 Asthma J45.909 Acute cough R05.1 Cough type: acute Allergies T78.40XA
[2023-06-26 08:11] VITALS: BP 122/80; PULSE 93; O2SAT 97; BMI 32.9
== END 2023-06-26 08:51 | disposition home or self-care (01) ==
PROVIDERS: PCP Internal Medicine; Visit Provider Internal Medicine
DX: Z00.00 Encounter for general adult medical examination without abnormal findings (principal); J45.909 Unspecified asthma, uncomplicated; R05.1 Acute cough; T78.40XA Allergy, unspecified, initial encounter
CPT/HCPCS: 99396

== ENCOUNTER 2023-06-26 08:52 | Outpatient (REF) | payer OTHER, SELFPAY ==
[2023-06-26 11:38] LABS: Appearance Urine Cloudy; Color Urine Dark Yellow; Glucose Urine UA Negative (Negative); Leukocyte Esterase Urine Moderate (2+) (Negative); Nitrite Urine Negative (Negative); PH 5.5 (5.0-9.0); Specific Gravity - Urine >= 1.030 (1.005-1.025); UMIC TRIGGER UA YES; Urine Blood Trace (Negative); Urine Ketones Trace mg/dL (Negative); Urine Protein 30 (1+) mg/dL (Neg-Trace)
[2023-06-26 11:45] LABS: Bacteria Urine 3+ (None Seen)
== END 2023-06-26 08:53 | disposition home or self-care (01) ==
LOC: HO.HMGCLDS 08:52
PROVIDERS: PCP Internal Medicine; Visit Provider Internal Medicine
DX: Z00.00 Encounter for general adult medical examination without abnormal findings (principal)
CPT/HCPCS: 81001

== ENCOUNTER 2023-10-24 13:01 | Outpatient (REF) | payer OTHER, SELFPAY ==
--- NOTE | ~2023-10-24 | XR_ITS ---
EXAMINATION: XR CHEST CLINICAL INFORMATION: Chronic cough for 3 years. COMPARISON: 01/03/2022 TECHNIQUE: 2 views of the chest were obtained. FINDINGS: Lungs are well inflated. There is no gross pneumothorax. Degenerative changes in the thoracic spine. No pleural effusion. No focal consolidation. XR/XR chest 2V IMPRESSION: No evidence of pneumonia.
[2023-10-24 14:29] LABS: MANUAL DIFF FLAG NO
[2023-10-24 15:00] LABS: Basophils Percent Auto 0.5 % (0-2); Eosinophils Absolute Auto 0.1 X10*3/uL (0.0-0.4); Eosinophils Percent Auto 2.3 % (0-4); Hematocrit 35.2 % (37.0-47.0); Imm Gran Abs Auto 0.02 X10*3/uL (0.00-0.03); Imm Gran Pct Auto 0.3 % (0.0-0.4); Lymphocytes Absolute Auto 2.3 X10*3/uL (1.2-4.9); Lymphocytes Percent Auto 37.7 % (20-40); Mean Corpuscular HGB Conc 34.1 g/dl (31.0-35.0); Mean Corpuscular Hemoglobin 31.7 pg (27.0-33.0); Mean Corpuscular Volume 92.9 fL (80.0-98.0); Mean Platelet Volume 9.4 fL (9.4-12.3); Monocytes Absolute Auto 0.4 X10*3/uL (0.1-1.2); Monocytes Percent Auto 6.2 % (2-11); Neutrophils Absolute Auto 3.2 x10*3/uL (2.0-8.3); Platelet Count 206 X10*3/uL (160-400); Red Blood Count 3.79 X10*6/uL (4.20-5.50); Red Cell Distribution Width 13.5 % (11.0-16.0)
[2023-10-24 15:45] LABS: Anion Gap 11 (12-20); Blood Urea Nitrogen 20 mg/dL (9-16); Calcium 10.1 mg/dL (8.4-10.2); Carbon Dioxide 28 mmol/L (22-29); Chloride 105 mmol/L (96-108); Estimated Glomerular Filt Rate > 60; Glucose Random 104 mg/dL (60-115); Potassium 3.2 mmol/L (3.3-5.1); Sodium 141 mmol/L (135-145)
[2023-10-24 15:50] LABS: Erythrocyte Sedimentation Rate 17 MM/HR (0-20)
[2023-10-27 16:08] LABS: Immunoglobulin G Subclass 1 488 mg/dL (382-929); Immunoglobulin G Subclass 2 336 mg/dL (241-700); Immunoglobulin G Subclass 3 46 mg/dL (22-178); Immunoglobulin G Subclass 4 36.6 mg/dL (4-86); Immunoglobulin G Total 1000 mg/dL (600-1640)
[2023-10-27 16:33] LABS: Alpha 1 Anti-trypsin 144 mg/dL (83-199); IgA 321 mg/dL (47-310); IgG 1099 mg/dL (600-1640); IgM 148 mg/dL (50-300)
[2023-10-28 22:28] LABS: Immunoglobulin E 21 kU/L (<OR=114)
[2023-11-02 15:28] LABS: Asperg fumigatus Precip Abs NEGATIVE (NEGATIVE); Micropoly faeni Abs NEGATIVE (NEGATIVE); Pigeon serum Abs NEGATIVE (NEGATIVE); Saccharo pora viridis Abs NEGATIVE (NEGATIVE); Thermo candidus Abs NEGATIVE (NEGATIVE); Thermoa vulgaris #1 NEGATIVE (NEGATIVE)
== END 2023-10-24 13:02 | disposition home or self-care (01) ==
LOC: HO.XRAY 13:01
PROVIDERS: PCP Internal Medicine; Referring Provider Internal Medicine; Visit Provider Hospitalist
DX: R05.3 Chronic cough (principal); R05.1 Acute cough; R91.8 Other nonspecific abnormal finding of lung field; T78.40XD Allergy, unspecified, subsequent encounter; J45.40 Moderate persistent asthma, uncomplicated; J41.8 Mixed simple and mucopurulent chronic bronchitis; J31.0 Chronic rhinitis
CPT/HCPCS: 36415; 71046; 80048; 82103; 82784; 82785; 85025; 85652; 86331; 86606; 86609; 94640

== ENCOUNTER 2023-10-24 13:01 | Outpatient (AMB) | payer OTHER, SELFPAY ==
[2023-10-24 13:10] VITALS: PULSE 81; O2SAT 96; BMI 32.9
--- NOTE | 2023-10-24 13:10 | A.OFFVIS_ITS ---
Vital Signs 10/24/23 13:10 Height 5 ft 6 in Weight 203 lb 14.841 oz BMI 32.9 Pulse 81 Pulse Source Pulse Oximeter Pulse Oximetry (%) 96 Oxygen Delivery Method Room Air Intake Visit Reasons: Asthma Manager Background Required: No Allergies codeine Allergy (Unknown, Verified 10/24/23 13:11) vomiting palpitation oxycodone Allergy (Unknown, Verified 10/24/23 13:11) vomiting palpitations metoclopramide [From Reglan] Allergy (Verified 10/24/23 13:11) tingiling on face doxycycline Adverse Reaction (Verified 10/24/23 13:11) nausea vomiting tylenol with codeine Allergy (Mild, Uncoded 10/24/23 13:11) vomiting contrast Allergy (Uncoded 10/24/23 13:11) Hives HPI Comments Details: The patient is here for pulmonary evaluation. The patient is a 53 year woman with a known history of allergies status post allergy shots for many years. Who presents with a chronic cough. The cough has been present for many years. Typically productive in nature. Moderate severity. She does have wheezing at times. She has tried inhalers in the past without any significant improvement. The patient did have an evaluation for cough. A downtime she was placed on prednisone for an exacerbation in her symptoms quickly improved. Then after that the cough tends to slowly come back. But no the cough has been a little bit better. She was placed on inhalers but she can not tolerate the irritation in the mouth. She is getting some leukoplakia and irritation to her tongue. She does not tolerate the powder. Therefore, we did talk about switching her inhaler to an HFA with spacer to minimize exposure. We did review a previous chest x-ray. That was several years ago without any acute disease. The patient has had PFTs in the past as well. During the office visit we did provide her with a nebulized treatment. He did help her cough some. She was actively coughing in the office prior to the nebulizer treatment in her cough seemed to settle little bit after the nebulized treatment. Therefore, will provide her a nebulizer for her to take. Also has significant nasal congestion. She has tried multiple nasal sprays without any significant relief. She does do nasal lavage. Therefore, will have her continue doing the in addition to additional medicine. Will optimize her respiratory therapy and request additional blood work And imaging studies. If the patient is no better we can consider getting CT scan of chest. She may also benefit from a bronchoscopy. COUNT INCLUDES THE [facility] Medical History (Updated 10/26/23 @ 22:49 by Kirt Gauthier MD) Chronic rhinitis Chronic bronchitis Chronic cough Annual physical exam Asthma Enlarged thyroid Cough Allergies Anemia Lymphadenopathy, abdominal IBS (irritable bowel syndrome) Abdominal pain Hyperlipemia Hyperlipidemia Hemorrhoids Surgical History Hx of carpal tunnel repair H/O spinal fusion H/O colonoscopy No pertinent past surgical history Family History Father No problems noted. 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 Cognitive needs: No Hearing needs: No Vision needs: Yes Review of Systems Const Denies fever(s) Eyes Reports no additional complaints ENT Reports nasal congestion and Reports nasal discharge Card Denies chest pain and Reports dyspnea on exertion Resp Reports chest congestion, Reports cough, Reports dyspnea on exertion and Reports wheezing GI Reports no additional complaints Musc Reports no additional complaints Skin/Breast Denies rash Endo Denies flushing Yoni/Lymph Denies lymphadenopathy Aller/Immun Reports wheezing Physical Exam Vital Signs: Last Vital Signs Pulse 81 10/24/23 13:10 Pulse Ox 96 10/24/23 13:10 Oxygen Delivery Method Room Air 10/24/23 13:10 BMI result Body Mass Index 32.9 Const General: comfortable HEENT Head: Yes normocephalic Neck Neck: Yes supple Chest Chest palpation & inspection: normal inspection of the chest Resp Effort & Inspection: normal respiratory effort, Actively coughing Quality: productive and prolonged expiratory phase Auscultation: diminished lung sounds Cardio Heart sounds: S1 normal heart sound present and S2 normal heart sound present GI Palpation (GI): Soft to palpation Skin General skin exam: no rashes or lesions noted Extrem General: Yes no clubbing, cyanosis or edema Office Procedures Nebulizer Treatment Nebulizer Treatment [id number] RX initial, or Nebulizer Subsequent Treatment Office Meds albuterol sulfate 2.5 mg/3 mL (0.083 %) solution for nebulization Performing Provider: Kirt Gauthier MD Performing Location: [facility] Pulmonology Services Administered by: Katia Tavarez LPN on 10/24/23 13:46 Dose Route Admin Location Dispensed Lot Number Expiration Date NDC Inventory Controller 2.5 mg inhalation 3 mL [id number] 07/12/24 Assessment & Plan Assessment & Plan (1) Chronic cough: Code(s): R05.3 - Chronic cough Category: Medical (2) Allergies: Comment: Getting immunotherapy once a month Code(s): T78.40XA - Allergy, unspecified, initial encounter Category: Medical Qualifiers: Encounter type: initial encounter Qualified Code(s): T78.40XA - Allergy, unspecified, initial encounter (3) Asthma: Code(s): J45.909 - Unspecified asthma, uncomplicated Category: Medical Qualifiers: Asthma severity: moderate Asthma persistence: persistent Asthma complication type: uncomplicated Qualified Code(s): J45.40 - Moderate persistent asthma, uncomplicated (4) Chronic bronchitis: Code(s): J42 - Unspecified chronic bronchitis Category: Medical Qualifiers: Chronic bronchitis type: mixed simple and mucopurulent Qualified Code(s): J41.8 - Mixed simple and mucopurulent chronic bronchitis (5) Chronic rhinitis: Code(s): J31.0 - Chronic rhinitis Category: Medical Plan bloodwork Nebulizer provided in the office start Advair HFA with space KODY as needed requesting an acapella valve budesonide daily CXR consider bronchoscopy if no better. ? component of tracheobronchomalecia F/U 2 months Orders: Orders Complete Blood Count Auto Diff 10/24/23 R05.1 - Acute cough, R05.3 - Chronic cough XR chest 2V 10/24/23 R05.1 - Acute cough, R05.3 - Chronic cough AMB Nebulizer Treatment 10/24/23 R05.1 - Acute cough, T78.40XA - Allergy, unspecified, initial encounter AMB Nebulizer Treatment 10/24/23 J45.40 - Moderate persistent asthma, uncomplicated Basic Metabolic Panel 10/24/23 R05.1 - Acute cough, R05.3 - Chronic cough Immunoglobulins,IgG IgA IgM 07/12/24 R05.1 - Acute cough, R05.3 - Chronic cough Immunoglobulin G Subclasses 10/24/23 R05.1 - Acute cough, R05.3 - Chronic cough Immunoglobulin E 10/24/23 R05.1 - Acute cough, R05.3 - Chronic cough Hypersensitive Pneumonitis Prf 10/24/23 R05.1 - Acute cough, R05.3 - Chronic cough, R91.8 - Other nonspecific abnormal finding of lung field Alpha 1 Anti-trypsin 10/24/23 R05.1 - Acute cough, R05.3 - Chronic cough Erythrocyte Sedimentation Rate 10/24/23 R05.1 - Acute cough, R05.3 - Chronic cough Medications: New budesonide 0.5 mg (2 mL) inhalation DAILY 30 days 60 mL 11RF J44.9 - Chronic obstructive pulmonary disease, unspecified fluticasone propion-salmeterol 115-21 mcg/actuation (Advair HFA) 2 puffs inhalation Q12H 30 days 12 grams 11RF albuterol sulfate 2.5 mg (3 mL) inhalation ONCE 3 mL 0RF J45.40 - Moderate persistent asthma, uncomplicated Coding Level of Care Code New Pt Level 4 (90472) Diagnoses Chronic cough R05.3 Allergy, initial encounter T78.40XA Encounter type: initial encounter Moderate persistent asthma without complication J45.40 Asthma severity: moderate Asthma persistence: persistent Asthma complication type: uncomplicated Mixed simple and mucopurulent chronic bronchitis J41.8 Chronic bronchitis type: mixed simple and mucopurulent Chronic rhinitis J31.0 CPT Codes Nebulizer Treatment - Nebulizer Treatment, initial or subsequent: [id number] Nebulizer/MDI RX initial, or Nebulizer Subsequent Treatment ([id number]) Time Spent (min) 45
== END 2023-10-24 14:06 | disposition home or self-care (01) ==
PROVIDERS: PCP Internal Medicine; Referring Provider Internal Medicine; Visit Provider Hospitalist
DX: R05.3 Chronic cough (principal); T78.40XA Allergy, unspecified, initial encounter; J45.40 Moderate persistent asthma, uncomplicated; J41.8 Mixed simple and mucopurulent chronic bronchitis; J31.0 Chronic rhinitis
CPT/HCPCS: 99204

== ENCOUNTER 2023-12-12 09:53 | Outpatient (AMB) | payer OTHER, SELFPAY ==
[2023-12-12 09:55] VITALS: PULSE 84; O2SAT 97; BMI 32.3
--- NOTE | 2023-12-12 09:55 | A.OFFVIS_ITS ---
Vital Signs 12/12/23 09:55 Height 5 ft 6 in Weight 200 lb BMI 32.3 Pulse 84 Pulse Source Pulse Oximeter Pulse Oximetry (%) 97 Oxygen Delivery Method Room Air Intake Visit Reasons: Asthma follow-up Wound Treatment Rn Required: No Allergies codeine Allergy (Unknown, Verified 12/12/23 09:57) vomiting palpitation oxycodone Allergy (Unknown, Verified 12/12/23 09:57) vomiting palpitations metoclopramide [From Reglan] Allergy (Verified 12/12/23 09:57) tingiling on face doxycycline Adverse Reaction (Verified 12/12/23 09:57) nausea vomiting tylenol with codeine Allergy (Mild, Uncoded 12/12/23 09:57) vomiting contrast Allergy (Uncoded 12/12/23 09:57) Hives HPI Comments Details: The patient is a 53 year woman with a known history of allergies status post allergy shots for many years. Who presents with a chronic cough. The cough has been present for many years. Typically productive in nature. Moderate severity. She does have wheezing at times. She has tried inhalers in the past without any significant improvement. The patient did have an evaluation for cough. A downtime she was placed on prednisone for an exacerbation in her symptoms quickly improved. Then after that the cough tends to slowly come back. But no the cough has been a little bit better. She was placed on inhalers but she can not tolerate the irritation in the mouth. She is getting some leukoplakia and irritation to her tongue. She does not tolerate the powder. Therefore, we did talk about switching her inhaler to an HFA with spacer to minimize exposure. We did review a previous chest x-ray. That was several years ago without any acute disease. The patient has had PFTs in the past as well. During the office visit we did provide her with a nebulized treatment. He did help her cough some. She was actively coughing in the office prior to the nebulizer treatment in her cough seemed to settle little bit after the nebulized treatment. Therefore, will provide her a nebulizer for her to take. Also has significant nasal congestion. She has tried multiple nasal sprays without any significant relief. She does do nasal lavage. Therefore, will have her continue doing the in addition to additional medicine. Will optimize her respiratory therapy and request additional blood work And imaging studies. If the patient is no better we can consider getting CT scan of chest. She may also benefit from a bronchoscopy. 12/12/2023 the patient is here for a pulmonary follow-up visit. She is still doing about the same. Still has a significant cough. Nonproductive in nature. Moderate to severe. did not see any significant improvement with inhaler therapy. Chest x-ray without any acute disease. The patient already has been seen by ENT without any significant findings in addition to that the patient follows a reflux diet. She did have an abnormal barium swallow with reflux and hiatal hernia. She is trying to sleep elevated and having small meals. Based on the fact the patient continues to have a significant cough and not responding to typical therapy will go ahead and request a CT scan of the chest to see if there is any ongoing anatomical issues to explain cough. She may have a component of tracheobronchomalacia. In addition to that based on the CT scan we can decide if we need to perform a bronchoscopy. Low threshold to provide 1 at this time will go ahead and treat her with Sudafed and a 1st generation antihistamine to help with her cough. She can also try a small dose of the gabapentin for neurogenic cough. She will continue the respiratory therapy at this time. [facility] Medical History (Updated 12/15/23 @ 20:22 by Kirt Gauthier MD) Hiatal hernia Chronic rhinitis Chronic bronchitis Chronic cough Annual physical exam Asthma Enlarged thyroid Cough Allergies Anemia Lymphadenopathy, abdominal IBS (irritable bowel syndrome) Abdominal pain Hyperlipemia Hyperlipidemia Hemorrhoids Surgical History Hx of carpal tunnel repair H/O spinal fusion H/O colonoscopy No pertinent past surgical history Family History Father No problems noted. 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 Cognitive needs: No Hearing needs: No Vision needs: Yes Review of Systems Const Denies fever(s) Eyes Reports no additional complaints ENT Reports nasal congestion and Reports nasal discharge Card Denies chest pain and Reports dyspnea on exertion Resp Reports chest congestion, Reports cough, Reports dyspnea on exertion and Reports wheezing GI Reports no additional complaints Musc Reports no additional complaints Skin/Breast Denies rash Endo Denies flushing Yoni/Lymph Denies lymphadenopathy Aller/Immun Reports wheezing Physical Exam Vital Signs: Last Vital Signs Pulse 84 12/12/23 09:55 Pulse Ox 97 12/12/23 09:55 Oxygen Delivery Method Room Air 12/12/23 09:55 BMI result Body Mass Index 32.3 Const General: comfortable HEENT Head: Yes normocephalic Neck Neck: Yes supple Chest Chest palpation & inspection: normal inspection of the chest Resp Effort & Inspection: normal respiratory effort and Actively coughing Quality: productive Auscultation: diminished lung sounds Cardio Heart sounds: S1 normal heart sound present and S2 normal heart sound present GI Palpation (GI): Soft to palpation Skin General skin exam: no rashes or lesions noted Extrem General: Yes no clubbing, cyanosis or edema Assessment & Plan Assessment & Plan (1) Chronic cough: Code(s): R05.3 - Chronic cough Category: Medical (2) Allergies: Comment: Getting immunotherapy once a month Code(s): T78.40XA - Allergy, unspecified, initial encounter Category: Medical Qualifiers: Encounter type: initial encounter Qualified Code(s): T78.40XA - Allergy, unspecified, initial encounter (3) Asthma: Code(s): J45.909 - Unspecified asthma, uncomplicated Category: Medical Qualifiers: Asthma complication type: uncomplicated Asthma persistence: persistent Asthma severity: moderate Qualified Code(s): J45.40 - Moderate persistent asthma, uncomplicated (4) Chronic bronchitis: Code(s): J42 - Unspecified chronic bronchitis Category: Medical Qualifiers: Chronic bronchitis type: mixed simple and mucopurulent Qualified Code(s): J41.8 - Mixed simple and mucopurulent chronic bronchitis (5) Chronic rhinitis: Code(s): J31.0 - Chronic rhinitis Category: Medical (6) Hiatal hernia: Code(s): K44.9 - Diaphragmatic hernia without obstruction or gangrene Category: Medical Plan contiune Advair HFA with space KODY as needed acapella valve CT chest start pseudophed and chorpherinamine for upper away cough syndrome start low dose gabapentin consider promotility agent reflux diet consider GI eval to address her hiatal hernia and reflux disease consider bronchoscopy if no better. ? component of tracheobronchomalecia F/U 2 months Orders: Orders CT chest wo IV con Today R05.1 - Acute cough Medications: New pseudoephedrine HCl ER 120 mg PO Q12H 30 days 60 tabs 1RF chlorpheniramine maleate ER 12 mg PO Q12H 30 days PRN 60 tabs 5RF allergy symptoms gabapentin 100 mg PO TID 30 days 90 caps 3RF Coding Level of Care Code Est Pt Level 4 (48265) Diagnoses Chronic cough R05.3 Allergy, initial encounter T78.40XA Encounter type: initial encounter Moderate persistent asthma without complication J45.40 Asthma complication type: uncomplicated Asthma persistence: persistent Asthma severity: moderate Mixed simple and mucopurulent chronic bronchitis J41.8 Chronic bronchitis type: mixed simple and mucopurulent Chronic rhinitis J31.0 Hiatal hernia K44.9 Time Spent (min) 17
== END 2023-12-12 10:22 | disposition home or self-care (01) ==
PROVIDERS: PCP Internal Medicine; Visit Provider Hospitalist
DX: R05.3 Chronic cough (principal); T78.40XA Allergy, unspecified, initial encounter; J45.40 Moderate persistent asthma, uncomplicated; J41.8 Mixed simple and mucopurulent chronic bronchitis; J31.0 Chronic rhinitis; K44.9 Diaphragmatic hernia without obstruction or gangrene
CPT/HCPCS: 99214

== ENCOUNTER → 2023-12-12 09:53 | Outpatient (BNVA) | payer OTHER, SELFPAY | PROVIDERS: PCP Internal Medicine; Visit Provider Hospitalist ==

== ENCOUNTER 2024-01-09 14:36 | Outpatient (REF) | payer OTHER, SELFPAY ==
--- NOTE | ~2024-01-09 | CT_ITS ---
EXAMINATION: CT CHEST WITHOUT CONTRAST CLINICAL INFORMATION: Acute cough. COMPARISON: No prior CT. Chest x-ray 10/24/2023. TECHNIQUE: Multidetector volumetric CT imaging of the chest was done. Axial MIP volume rendering provided. Sagittal and coronal reformatted images were obtained. This CT examination was performed using dose optimization techniques as appropriate, variously including the following: *Automated exposure control *Adjustment of mA and/or kV according to patient size (this includes techniques or standardized protocols for targeted exams where dose is matched to indication/reason for exam; i.e. extremities or head) *Use of iterative reconstruction technique DLP: 319 mGy-cm FINDINGS: PULMONARY NODULES: -4 mm nodule left lower lobe peripherally (series 4, image 365). This demonstrates a pleural tag and is most likely an intrapulmonary lymph node. -No additional pulmonary nodules present. LUNGS: -The lungs are clear bilaterally. There are no consolidations or abnormal opacities. -The small airways are normal without thickening. -The central airways are normal. -There is no pleural fluid or other pleural abnormality. No pneumothorax. MEDIASTINUM: -The mediastinum is normal. -Heart size normal. No pericardial effusion. -Adenopathy. -Normal esophagus. -Aorta and main pulmonary artery normal. -Thyroid appears normal by CT. CORONARY ARTERY CALCIFICATION: -None visualized on this study. AXILLA/CHEST WALL: -No masses or lymphadenopathy. UPPER ABDOMEN: -Normal. OSSEOUS STRUCTURES: -Normal. CT/CT chest wo IV con IMPRESSION: 1. No acute findings. No active disease in the chest. No explanation for cough. 2. Ancillary findings as discussed. Fleischner guidelines were followed. Electronically signed by: Eddie Lane MD 03/12/2024 01:00 PM [facility]
== END 2024-01-09 14:37 | disposition home or self-care (01) ==
LOC: HO.CT 14:36
PROVIDERS: PCP Internal Medicine; Visit Provider Hospitalist
DX: R05.1 Acute cough (principal)
CPT/HCPCS: 71250

== ENCOUNTER → 2024-01-09 14:39 | Outpatient (BNV) | payer OTHER, SELFPAY | PROVIDERS: PCP Internal Medicine; Visit Provider Radiology Diagnostic Radiology | DX: R05.1 Acute cough (principal) | CPT/HCPCS: 71250 ==

== ENCOUNTER 2024-07-09 08:22 | Outpatient (AMB) | payer OTHER, SELFPAY ==
[2024-07-09 08:24] VITALS: BP 120/78; PULSE 76; RESP 18; TEMP 36.8; O2SAT 99; BMI 32.6
--- NOTE | 2024-07-09 08:24 | MHC.PC.OV ---
Vital Signs 07/09/24 08:24 Height 5 ft 6 in Weight 202 lb BMI 32.6 BP 120/78 Blood Pressure Location Lt brachial Position Sitting Respiration 18 Pulse 76 Pulse Source Pulse Oximeter Temp 98.2 F Temp Source Oral Pulse Oximetry (%) 99 Oxygen Delivery Method Room Air Intake Visit Reasons: PE Intake Note: Pt is here today for PE. Allergies codeine Allergy (Unknown, Verified 07/09/24 08:29) vomiting palpitation oxycodone Allergy (Unknown, Verified 07/09/24 08:29) vomiting palpitations metoclopramide [From Reglan] Allergy (Verified 07/09/24 08:29) tingiling on face doxycycline Adverse Reaction (Verified 07/09/24 08:29) nausea vomiting tylenol with codeine Allergy (Mild, Uncoded 07/09/24 08:29) vomiting contrast Allergy (Uncoded 07/09/24 08:29) Hives Medication List - Last Reconciled 07/09/24 by Samira Rocha MD albuterol sulfate 90 mcg/actuation 1 inh inhalation QID PRN multivitamin 1 tab PO DAILY valacyclovir 2,000 mg (2 x 1 gram) PO Q12H 1 day Tobacco use date assessed: 07/09/24 Dental Screening Dental Screen Date: 07/09/24 Did you have a dental visit in the last 12 months?: Yes Did you have a dental problem in the last 6 months where you did not have access to dental care?: No Was dental information given to patient?: Patient has dentist HPI PE HPI Details Patient presents for physical PFSH Medical History Hiatal hernia Chronic rhinitis Chronic bronchitis Chronic cough Annual physical exam Asthma Enlarged thyroid Cough Allergies Anemia Lymphadenopathy, abdominal IBS (irritable bowel syndrome) Abdominal pain Hyperlipemia Hyperlipidemia Hemorrhoids Surgical History Hx of carpal tunnel repair H/O spinal fusion H/O colonoscopy No pertinent past surgical history Family History Father No problems noted. 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 1. Little interest or pleasure in doing things: not at all 2. Feeling down, depressed, or hopeless: not at all 3. Trouble falling or staying asleep, or sleeping too much: not at all 4. Feeling tired or having little energy: not at all 5. Poor appetite or overeating: not at all 6. Feeling bad about yourself - or that you are a failure or have let yourself or your family down: not at all 7. Trouble concentrating on things, such as reading the newspaper or watching television: not at all 8. Moving or speaking so slowly that other people could have noticed. Or the opposite - being so fidgety or restless that you have been moving around a lot more than usual: not at all 9. Thoughts that you would be better off or of hurting yourself in some way: not at all Total score: 0 Depression Screening Interpretation: Negative Depression Screening Done: Yes 65811 - PHQ-9 Billing: Yes Source: Developed by Drs. Arnold Kilgore, Viry Cabrera, David Hall and colleagues, with an educational miguelangel from [employer]. Thrive Questionnaire Date Thrive assessed: 07/09/24 I am a: Patient What is your living situation today?: I have a steady place to live Within the past 12 months, did the food you bought not last and you didn't have the money to get more?: Never true Within the past 12 months, did you worry whether your food would run out before you got money to buy more?: Never true Do you have trouble paying for medicines?: No Do you have trouble getting transportation to medical appointments?: No Do you have trouble paying your heating and electricity bill?: I choose not to answer this question Do you have trouble taking care of your child, family member or friend?: No Do you have trouble with day-to-day activities such as bathing, preparing meals, shopping, managing finances, etc.?: No Are you currently unemployed and looking for a job?: No Are you interested in more education?: Yes Please select the resources that you would like help with: None THRIVE Score: 0 AUDIT C Alcohol Use Questionnaire (AUDIT-C) 1. How often do you have a drink containing alcohol?: Monthly or less 2. How many drinks containing alcohol do you have on a typical day when you are drinking?: 1 or 2 3. How often do you have six or more drinks on one occasion?: Never Total Score: 1 ALVERTO-7 AMB Questionnaire ALVERTO-7 Date ALVERTO - 7 assessed: 07/09/24 Feeling nervous, anxious, or on edge: 0 = Not at all Not being able to stop or control worryin = Not at all Worrying too much about different things: 0 = Not at all Trouble relaxin = Not at all Being so restless that it is hard to sit still: 0 = Not at all Becoming easily annoyed or irritable: 0 = Not at all Feeling afraid as if something awful might happen: 0 = Not at all Total ALVERTO-7 score (0-4 normal; 5-9 mild; 10-14 moderate; 15-21 severe): 0 Source: Developed by Drs. Arnold Kilgore, Viry Cabrera, David Hall and colleagues, with an educational miguelangel from [employer]. ALVERTO-7 Assessment Billing ALVERTO-7 Assessment Tool: ALVERTO-7 Assessment 34181 Review of Systems Const All systems reviewed & are unremarkable except as noted in HPI and below Eyes Reports no additional complaints ENT Reports no additional complaints Card Reports no additional complaints Resp Reports no additional complaints GI Reports no additional complaints Reports no additional complaints Physical exam (Primary Care) Vital Signs: Last Vital Signs Temp 98.2 F 07/09/24 08:24 Pulse 76 07/09/24 08:24 Resp 18 07/09/24 08:24 BP 120/78 07/09/24 08:24 Pulse Ox 99 07/09/24 08:24 Oxygen Delivery Method Room Air 07/09/24 08:24 BMI result Body Mass Index 32.6 Tobacco/Smoking Status: Tobacco use Status Tobacco use date assessed 07/09/24 07/09/24 08:26 Patient Tobacco Use Status Never used Tobacco 07/09/24 08:26 e-Cigarette/Vaping Use Never Used 07/09/24 08:26 PHQ-9: PHQ-9 Score PHQ-9: Total score 0 07/09/24 08:31 Depression Screening Interpretation: Negative Thrive Assessment: Date of Thrive Assessment Date Thrive assessed 07/09/24 07/09/24 08:31 Const General: no acute distress HENMT Head: Yes normal to inspection Ears: hearing grossly normal bilaterally Face and sinus: Yes normal facial exam Mouth: Normal oral and palatal mucosa present Eyes General: appearance normal, both eyes and all related structures Resp Effort & Inspection: normal respiratory effort Auscultation: clear to auscultation bilaterally Cardio Rhythm: regular rhythm Heart sounds: S1 normal heart sound present and S2 normal heart sound present GI Inspection: Yes normal to inspection Palpation (GI): Soft to palpation Percussion: Yes normal to percussion Auscultation: normal bowel sounds Coding Level of Care Code Est Pt Prev Care 40-64y(31611) Diagnoses Gastritis K29.70 Annual physical exam Z00. Additional Codes ALVERTO-7 Assessment Billing - ALVERTO-7 Assessment Tool: ALVERTO-7 Assessment 84638 ([id number]) PHQ-9 - 15049 - PHQ-9 Billing: Yes ([id number]) Assessment & Plan Assessment & Plan (1) Gastritis: Code(s): K29.70 - Gastritis, unspecified, without bleeding Category: Medical Plan: Check H pylori stool antigen continue PPI p.r.n. (2) Annual physical exam: Code(s): Z00.00 - Encounter for general adult medical examination without abnormal findings Category: Medical Plan: Well-balanced diet regular physical activity discussed with the patient. She is up-to-date with the Pap smear by glazier supervisor mammogram and colonoscopy Orders: Orders H pylori Ag Stool Today K29.70 - Gastritis, unspecified, without bleeding Comprehensive [place]. Panel Fast Today E78.5 - Hyperlipidemia, unspecified, R05.3 - Chronic cough, Z00.00 - Encounter for general adult medical examination without abnormal findings Lipid Panel Today E78.5 - Hyperlipidemia, unspecified, R05.3 - Chronic cough, Z00.00 - Encounter for general adult medical examination without abnormal findings TSH reflex Free T4 Today E78.5 - Hyperlipidemia, unspecified, R05.3 - Chronic cough, Z00.00 - Encounter for general adult medical examination without abnormal findings Vitamin D 25-OH Total Today E78.5 - Hyperlipidemia, unspecified, R05.3 - Chronic cough, Z00.00 - Encounter for general adult medical examination without abnormal findings Complete Blood Count Auto Diff Today E78.5 - Hyperlipidemia, unspecified, R05.3 - Chronic cough, Z00.00 - Encounter for general adult medical examination without abnormal findings UA and rflx microscopic Today E78.5 - Hyperlipidemia, unspecified, R05.3 - Chronic cough, Z00.00 - Encounter for general adult medical examination without abnormal findings Vitamin B12 and Folate Today Z00.00 - Encounter for general adult medical examination without abnormal findings Medications: New scopolamine base 1 patch transdermal Q3D PRN 4 ea 1RF nausea and vomiting
== END 2024-07-09 09:11 | disposition home or self-care (01) ==
LOC: HO.HMCC 08:23
PROVIDERS: PCP Internal Medicine; Visit Provider Internal Medicine
DX: K29.70 Gastritis, unspecified, without bleeding (principal); Z00.00 Encounter for general adult medical examination without abnormal findings

== ENCOUNTER 2024-07-09 08:22 | Outpatient (REF) | payer OTHER, SELFPAY ==
[2024-07-09 10:20] LABS: MANUAL DIFF FLAG NO
[2024-07-09 10:23] LABS: Basophils Percent Auto 0.5 % (0-2); Eosinophils Absolute Auto 0.1 X10*3/uL (0.0-0.4); Eosinophils Percent Auto 2.4 % (0-4); Hematocrit 36.4 % (37.0-47.0); Hemoglobin 12.6 g/dl (12.0-16.0); Imm Gran Abs Auto 0.01 X10*3/uL (0.00-0.03); Imm Gran Pct Auto 0.2 % (0.0-0.4); Lymphocytes Absolute Auto 1.6 X10*3/uL (1.2-4.9); Lymphocytes Percent Auto 38.1 % (20-40); Mean Corpuscular HGB Conc 34.6 g/dl (31.0-35.0); Mean Corpuscular Hemoglobin 31.4 pg (27.0-33.0); Mean Corpuscular Volume 90.8 fL (80.0-98.0); Monocytes Absolute Auto 0.3 X10*3/uL (0.1-1.2); Monocytes Percent Auto 7.1 % (2-11); Neutrophils Absolute Auto 2.2 x10*3/uL (2.0-8.3); Neutrophils Percent Auto 51.7 % (45-73); Platelet Count 201 X10*3/uL (160-400); Red Blood Count 4.01 X10*6/uL (4.20-5.50); Red Cell Distribution Width 13.3 % (11.0-16.0); White Blood Count 4.2 X10*3/uL (4.8-10.8)
[2024-07-09 10:24] LABS: Appearance Urine Clear; Color Urine Yellow; Glucose Urine UA Negative (Negative); Leukocyte Esterase Urine Negative (Negative); Nitrite Urine Negative (Negative); Urine Blood Negative (Negative); Urine Ketones Negative (Negative); Urine Protein Negative (Neg-Trace)
[2024-07-09 10:31] LABS: Bacteria Urine None Seen (None Seen); Hyaline Casts Urine 0-2 /LPF (0-2); RBC Urine 0-2 /HPF (0-2); Squamous Epithelial Cell Urine 0-2 /HPF (0-2); WBC Urine 0-5 /HPF (0-5)
[2024-07-09 11:34] LABS: Folate 11.2 ng/mL (> or = 4.0); Vitamin B12 345 pg/mL (200-900)
[2024-07-09 11:36] LABS: Alanine Aminotransferase 15 U/L (0-31); Albumin Level 4.5 g/dL (3.5-5.0); Alkaline Phosphatase 56 U/L (39-117); Anion Gap 9 (12-20); Aspartate Amino Transferase 17 U/L (5-31); Bilirubin Total 0.5 mg/dL (0.0-1.0); Blood Urea Nitrogen 20 mg/dL (9-16); Calcium 9.6 mg/dL (8.4-10.2); Carbon Dioxide 27 mmol/L (22-29); Chloride 107 mmol/L (96-108); Cholesterol 178 mg/dL (<200); Estimated Glomerular Filt Rate > 60; Glucose Fasting 104 mg/dL (60-99); HDL Cholesterol 57 mg/dL (>40); LDL Cholesterol Calculated 114 mg/dL (<100); Potassium 4.1 mmol/L (3.3-5.1); Sodium 139 mmol/L (135-145); TSH reflex Free T4 1.36 uIU/mL (0.32-4.0); Total Protein 7.5 g/dL (6.5-8.0); Triglycerides 39 mg/dL (<150); Vitamin D 25-OH Total 35.1 ng/mL (>30)
== END 2024-07-09 08:23 | disposition home or self-care (01) ==
LOC: HO.HMGCLDS 08:22
PROVIDERS: PCP Internal Medicine; Visit Provider Internal Medicine
DX: Z00.00 Encounter for general adult medical examination without abnormal findings (principal); K29.70 Gastritis, unspecified, without bleeding; E78.5 Hyperlipidemia, unspecified; R05.3 Chronic cough
CPT/HCPCS: 80053; 80061; 81001; 82306; 82607; 82746; 84443; 85025; 96127

== ENCOUNTER 2024-07-13 07:00 | Outpatient (REF) | payer OTHER, SELFPAY ==
--- OUTSIDE RECORDS SUMMARY | 2024-07-13 08:46 | XMS_ITS | Clinical Summary ---
Author Organization [facility] Address [address] [place] [id number] Care Team Providers Care Amalgamator Name Role Phone Unavailable Primary Care Provider Unavailabl e Social History Tobacco Use Types Packs/Day Years Used Date Smoking Tobacco: Never Assessed Sex and Gender Information Value Date Recorded Sex Assigned at Not on file Gender Identity Not on file Sexual Orientation Not on file Plan of Treatment Health Maintenance Due Date Last Done Comments Hepatitis C Virus Screening 1969 HIV Screening 1982 DTaP/Tdap/Td Vaccines (1 - Tdap) 1988 Hepatitis B Vaccines (1 of 3 - 19+ 3-dose series) 1988 Pneumococcal Vaccines 50+ (1 of 1 - PCV) 2019 Zoster (Shingles) Vaccine (1 of 2) 2019 COVID-19 Vaccine ( - 2023-2 5 season) 2023 Pneumococcal Vaccine: Pediat wayne (0-5 Years) and At-Risk Patients (6 to 49 Years) Aged Out No longer eligible b ased on patient's age to complete this topic
--- OUTSIDE RECORDS SUMMARY | 2024-07-13 08:46 | XMS_ITS | Clinical Summary ---
Author Organization [facility] Address [address] [place] [address] Care Team Providers Care Fiberglasser Name Role Phone Samira Rocha MD Primary Care Provider [phone] Social History Tobacco Use Types Packs/Day Years Used Date Smoking Tobacco: Never Assessed Sex and Gender Information Value Date Recorded Sex Assigned at Not on file Gender Identity Not on file Sexual Orientation Not on file Job Start Date Occupation Industry Not on file Not on file Not on file Plan of Treatment Health Maintenance Due Date Last Done Comments Hepatitis B Vaccines (1 of 3 - 3-dose series) 1969 Hepatitis C Screening 1969 COVID-19 Vaccine (#1) 1969 Depression Screening 1981 Preventative Health Evaluation 1987 DTap / Tdap / Td (1 - Tdap) 1988 Cervical Cancer Screening (P ap Smear) 1990 Colon Cancer Screening (Colonoscopy) 2014 Breast Cancer Screening (Mammogram) 2019 Shingrix-Zoster Vaccine (1 of 2) 2019 Influenza Vaccine (#1) 2023 Pneumococcal Vaccine Aged Out No long er eligible based on patient's age to complete this topic RSV Ped < 20 months Aged Out No longe r eligible based on patient's age to complete this topic Care Teams Fiberglasser Relationship Specialty Start Date End Date Samira Rocha MD [address] [facility] [place]on [id number] PCP - General Handbag Parts Cutter 10/27/17
== END 2024-07-13 07:01 | disposition home or self-care (01) ==
LOC: HO.HMGCLNP 07:00
PROVIDERS: PCP Internal Medicine; Visit Provider Internal Medicine
DX: K29.70 Gastritis, unspecified, without bleeding (principal)
CPT/HCPCS: 87338

== ENCOUNTER 2024-08-13 07:27 | Outpatient (REF) | payer OTHER, SELFPAY ==
--- NOTE | ~2024-08-13 | CT_ITS ---
CLINICAL HISTORY: R51.9 - Headache, unspecified CT head without contrast Comparison: None Findings: No intra-axial mass, midline shift, hydrocephalus, or acute hemorrhage. No significant atrophy-like change or white matter disease. There is no sinus or mastoid fluid. The orbits are unremarkable. There is no acute fracture. IMPRESSION: 1. No acute intracranial findings. This document has been electronically signed by: Bharat Tavares MD on 08/14/2024 06:45:25
--- OUTSIDE RECORDS SUMMARY | 2024-08-13 07:28 | XMS_ITS | Clinical Summary ---
Author Organization [facility] Address [address] [place] [id number] Care Team Providers Care Entry Processor Name Role Phone Unavailable Primary Care Provider Unavailabl e Social History Tobacco Use Types Packs/Day Years Used Date Smoking Tobacco: Never Assessed Sex and Gender Information Value Date Recorded Sex Assigned at Not on file Legal Sex Male 2:20 PM EDT Gender Identity Not on file Sexual Orientation Not on file Plan of Treatment Health Maintenance Due Date Last Done Comments Hepatitis C Virus Screening 1969 HIV Screening 1982 DTaP/Tdap/Td Vaccines (1 - Tdap) 1988 Hepatitis B Vaccines (1 of 3 - 19+ 3-dose series) 04/15 Pneumococcal Vaccines 50+ (1 of 1 - PCV) 2019 Zoster (Shingles) Vaccine (1 of 2) 2019 COVID-19 Vaccine ( - 2023- season) 2023
--- OUTSIDE RECORDS SUMMARY | 2024-08-13 07:28 | XMS_ITS | Data Portability ---
Author Organization [place] - [facility], [facility] Address [address] [place] [address] Care Team Providers Care Yard Clerk Name Role Phone AILYN CORREA Primary Care Provider [phone] Assessment No assessment recorded. Plan of Treatment Reminders Order Date Submit Date Provider Last Modified By Organization Details Last Modified Time Details Appointments None recorded. Lab urinalysis , dipstick 2020 021 [email or web address] In-Office Order, Internal Use Only DO Not Attach Compendium DO Not Attach Compendium, Do Not Delete/merge, [id number] 1 13:43:48 pap, IG + HPV - normal exam 2020 021 [facility], [address] [place], [address] 1 14:26:33 test, urine 2018 019 [email or web address] In-Office Order, Internal Use Only DO Not Attach Compendium DO Not Attach Compendium, Do Not Delete/merge, [id number] 9 18:21:39 CT + NG DNA, PCR, unspecifie d specimen 2018 019 [facility], [address] [place], [address] 9 10:53:14 bacterial vaginosis + vaginitis panel, vaginal 2018 019 [facility], [address] [place], [address] 9 12:54:36 urinalysis , dipstick 2018 019 [email or web address] In-Office Order, Internal Use Only DO Not Attach Compendium DO Not Attach Compendium, Do Not Delete/merge, [id number] 9 13:23:34 bacterial vaginosis + vaginitis panel, vaginal 2017 018 [facility], [address] [place], [address] 8 12:28:56 Referral None recorded. Procedures None recorded. Surgeries None recorded. Imaging MAMMO, screening, tomosynthe sis, bilateral, w/ CAD 2020 021 [email or web address] [facility] Orders, [address], [address], [place], [address], 2 10:32:05 MAMMO, screening, digital, bilateral, w/ CAD 2018 019 [facility] Orders, [address], [address], [place], [address], 9 09:34:18 Medication Orders Mirena 21 mcg/24 hr (up to 8 years) 52 mg intrauteri ne device 2018 019 ejacunski Not available 9 18:30:21 Diflucan 150 mg tablet 2017 018 [email or web address] [facility][id number], [address] [place] [address], [address], 9 10:08:03 Patient TargetsNo targets recorded. Patient Instructions Encounter Date Encounter Id Patient Instructions Last Modified By Organization Details Last Modified Time 06/24/2018 [id number] learning about healthy weight [email or web address] Not available 06/24/2018 13:23:35 Return to the office for annual exam and as needed. ejacunski Not available 06/24/2018 13:23:06 GYNECOLOGIC EXAMINATION - Diet, exercise discussed. Patient lost 12 lbs due to diet and exercise last year, but gained 16 lbs. Patient had back injury, scheduled for surgery 07/16/2018. Diet discussed including WW. IUD in place, placed 01/25/2014, schedule replacement. s/p benign breast biopsy, right breast at 11 o'clock. 04/25/2017 Schedule mammogram, dense breast discussed. raffi Not available 06/24/2018 13:22:56 01/04/2019 [id number] Return to the office in 6 weeks and as needed. ejacunski Not available 01/04/2019 18:21:38 02/18/2019 [id number] Return to the office for annual exam and as needed. 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 raffi Not available 07/24/2020 13:43:13 Patient presents for a well woman exam. She has been counseled regarding Pap smear screening as per guidelines of every three years for cytology review with high risk HPV testing. I have recommended an annual Bilateral Mammogram and I have counseled her about the benefit of performing monthly self-breast exams. We spoke about the recommendation of Vitamin D supplement. Behavioral health screening completed and reviewed with patient. Negative findings. raffi Not available 07/24/2020 13:43:42 Reason for Referral None Reported. Results Created Date Observation Date Name Description Value Unit Range Abnormal Flag Note LastModifiedBy Organization Detail LastModifiedTime 02/28/20 18 02/28/2018 bacte rial vagin osis + vagin itis panel , vagin al trichomonas vaginalis DNA Negati ve negati ve Not Available [facility] [address] [place], [address] 02/28/2018 12:28:56 02/28/20 18 02/28/2018 bacte rial vagin osis + vagin itis panel , vagin al gardnerella vaginalis DNA Positi ve negati ve abnormal Not Available [facility] [address] [place], [address] 02/28/2018 12:28:56 02/28/20 18 02/28/2018 bacte rial vagin osis + vagin itis panel , vagin al pato species DNA Negati ve negati ve Not Available [facility] [address] [place], [address] 02/28/2018 12:28:56 06/25/1906/26/2018 bacte rial vagin osis + vagin itis panel , vagin al trichomonas vaginalis DNA NOT DETECT ED not detect ed Not Available [facility] [address] [place], [address] 06/26/2018 12:54:36 06/25/1906/26/2018 bacte rial vagin osis + vagin itis panel , vagin al gardnerella vaginalis DNA DETECT ED not detect ed abnormal Incre ased level s of G. vagin delbert may not be signi fican t in the absen ce of signs and sympt oms of bacte rial vagin osis. Not Available [facility] [address] [place], [address] 06/26/2018 12:54:36 06/25/1906/26/2018 bacte rial vagin osis + vagin itis panel , vagin al pato species DNA NOT DETECT ED not detect ed Not Available [facility] [address] [place], [address] 06/26/2018 12:54:36 06/25/1906/24/2018 urina lysis , dipst ick Protein Negati ve Not Available In-Office Order Internal Use Only DO Not Attach Compendium DO Not Attach Compendium, Do Not Delete/merge, [id number] 06/24/2018 10:32:45 06/25/1906/24/2018 urina lysis , dipst ick Glucose Negati ve Not Available In-Office Order Internal Use Only DO Not Attach Compendium DO Not Attach Compendium, Do Not Delete/merge, [id number] 06/24/2018 10:32:45 01/05/2001/06/2019 CT + NG DNA, PCR, unspe cifie d speci men chlamydia trachomatis RNA, tma, urogenital NOT DETECT ED not detect ed normal Not Available [facility] [address] [place], [address] 01/06/2019 10:53:14 01/05/2001/06/2019 CT + NG DNA, PCR, unspe cifie d speci men neisseria gonorrhoeae RNA, tma, urogenital NOT DETECT ED not detect ed normal Not Available [facility] [address] [place], [address] 01/06/2019 10:53:14 01/05/2001/06/2019 CT + NG DNA, PCR, unspe cifie d speci men comment This test was perfo rmed using the APTIM A COMBO 2 Assay ([employer] . The marisol tical perfo rmanc e fortunato cteri stics of this assay , when used to test SureP ath speci mens have been deter mined by [facility] bennie pozo Not Available [facility] [address] [place], [address] 01/06/2019 10:53:14 01/05/2001/04/2019 pregn cuca test, urine Result negati ve Not Available In-Office Order Internal Use Only DO Not Attach Compendium DO Not Attach Compendium, Do Not Delete/merge, [id number] 01/04/2019 09:55:59 07/25/1907/24/2020 HPV DNA, high- risk HPV MRNA E6/E7 Negati ve negati ve APTIM A HPV assay detec ts 14 high risk HPV types (HPV 16,18 ,31,3 3,35, 39,45 ,51,5 2,56, 58,59 ,66,6 8). The assay is FDA appro mary ann for testi ng ThinP rep liqui d Pap vials but not FDA appro mary ann for detec ting HPV in SureP ath liqui d Pap speci mens. In-ho use valid ation has shown the assay can detec t all HPV types from this sourc e Not Available [facility] [address] [place], [address] 07/26/2020 14:26:30 07/25/1907/24/2020 pap, IG + HPV report Report Final Gynec ologi lloyd Cytol ogy Repor t ----- ----- ----- ----- ----- ----- ----- ----- ----- ----- ----- ----- ThinP rep Pap Test, HPV Scree n, Refle x HPV Genot ype SPECI MEN ADEQU ACY: SATIS FACTO RY FOR EVALU ATION ; ENDOC ERVIC AL/TR ANSFO RMATI ON ZONE COMPO NENT PRESE NT. INTER PRETA TION: NEGAT BRAYDEN FOR INTRA EPITH ELIAL LORENZOKENDALL N OR LIN FONTENOT . Elect matthew Hanks d: Demi Fox, [place] (ASCP ) ----- ----- ----- ----- ----- ----- ----- ----- ----- ----- ----- ----- CLINI LLOYD INFOR MACIE N: LMP: NG Speci men Sourc e: Cervi x, Endoc ervix HPV RESUL TS: HPV mRNA E6/E7 16410 53648 Appro mary ann: 07/25 Negat brayden REF RANGE : Negat brayden CPT Codes : 66826 ICD Codes : Z12.[address] [facility] [address] [place], [address] 07/26/2020 14:26:33 07/25/19 21 07/24/2020 urina lysis , dipst ick Protein Negati ve Not Available In-Office Order Internal Use Only DO Not Attach Compendium DO Not Attach Compendium, Do Not Delete/merge, [id number] 07/24/2020 09:25:42 07/25/19 21 07/24/2020 urina lysis , dipst ick Glucose Negati ve Not Available In-Office Order Internal Use Only DO Not Attach Compendium DO Not Attach Compendium, Do Not Delete/merge, [id number] 07/24/2020 09:25:42 01/05/20 19 01/04/2019 ultra sound image s RAD ejacnelda [facility] [address], [address], 02/18/2019 11:02:32 01/05/20 19 01/04/2019 ultra sound image s RAD ejacunski [facility] [address] [place], [address], 02/18/2019 11:02:32 01/05/20 19 01/04/2019 ultra sound image s RAD [facility] [address] [facility] [address], [place], [address], 02/18/2019 11:02:32 03/01/20 19 10/27/2018 MAMMO , scree javier, digit al, bilat eral, w/ CAD No observ ation record ed. [facility] Orders [address], [place], [address], 07/24/2020 12:15:19 03/03/20 19 10/30/2018 US, breas t, unila teral No observ ation record ed. [facility] (Imaging) [address], [place], [address], 07/24/2020 12:15:19 06/16/19 20 05/04/2019 US, breas t, unila teral No observ ation record ed. ejacunski Not Available 2020 12:15:19 01/27/20 20 01/27/2020 MAMMO , scree javier, digit al, bilat eral, w/ CAD No observ ation record ed. [facility] [address], [place], [address], 07/24/2020 12:15:19 03/16/20 20 01/27/2020 MAMMO , scree javier, tomos ynthe sis, bilat eral No observ ation record ed. [facility] Orders [address], [place], [address], 07/24/2020 12:15:19 04/11/20 20 04/10/2020 US, breas t, bilat eral No observ ation record ed. ejacunski Not Available 2020 12:15:18 Result Notes None recorded. Problems Name Problem SNOMED Code Status Onset Date Resolution Date Notes Provider Name and Address Organization Details Recorded Time Polyp of colon 22244921 Active colonosco py q 5 years LOU HILLIARD MD [address], [address] [facility], [place], [place], [address] [place] [address] 4, [facility] 9 10:54:37 Divertic ulosis of colon 179773480 Active 2018 LOU HILLIARD MD [address], [address] [place] [address], [place], [place], [address] [place] [address] 4, [facility] 9 10:53:29 Prolapse d lumbar interver tebral disc 897749705 Active surgery 07/16/2018 LOU HILLIARD MD [address], [address] [place] [address], [address] [place] [address] 4, [facility] 1 12:19:56 Hyperten sive disorder 49167529 Completed 01/18/2015 LOU HILLIARD MD [address], [address] [place] [address], [place], [place], [address] [place] [address] 4, [facility] 6 12:04:43 Asthma 541468759 Completed 01/18/2015 LOU HILLIARD MD [address], [address] [place] [address], [place], [address] [place] [address] 4, [facility] 6 12:04:43 Acoustic neuritis 43849328 Completed 01/18/2015 LOU HILLIARD MD [address], [address] [place] [address], [place], [address] [place] [address] 4, [facility] 6 12:04:43 Inconclu sive evaluati on finding 397321416 Completed 06/24/2018 DENSE BREAST, NL U/S LOU HILLIARD MD [address], [address] [place], [address] [place] [address], [place] [facility] 9 10:54:38 Kidney stone 23922744 Active LOU HILLIARD MD [address], [address] Floor, [place], [address], [facility] 6 12:04:43 Vaginal discharg e 579779650 Completed 07/24/2020 LOU HILLIARD MD [address] [facility], 3rd Floor, [place], [address], [facility] 1 12:19:40 Uses IUD (intraut erine device) contrace ption 803110960 Active MIRENA REPLACED 01/04/2019 LOU HILLIARD MD [address] [facility], [address] [place] [address], [address], [facility] 9 11:34:36 Problem Notes None recorded. Procedures Surgical History Date Name Laterality Status Provider Name and Address Organization Details Recorded Time 01/27/20 20 Date of Last Mammogram completed Yaneth Lam [facility] 07/24/2020 09:22:11 01/05/20 19 IUD Removal & Insertion completed LOU HILLIARD MD [address] [facility], [address] [place] [address], [phone], [facility] 01/04/2019 18:20:21 04/25/19 18 Breast Biopsy completed LOU HILLIARD MD [address] [facility], [address] [place] [address], [address], [facility] 06/04/2017 12:15:13 05/29/19 17 X6C-HTT completed LOU HILLIARD MD [address] [facility], [address] [place] [address], [address], [facility] 05/29/2016 21:04:08 05/29/19 17 N7D-SGK completed LOU HILLIARD MD [address] [facility], [address] [place] [address], [address], [facility] 05/29/2016 21:03:55 05/29/19 17 Q0C-YXAQZLR completed LOU HILLIARD MD [address], [address] Floor, [place], [address], [facility] 05/29/2016 21:03:50 05/29/19 17 [id number]-[id number] completed LOU HILLIARD MD [address], [address], [place], [address], [facility] 05/29/2016 21:04:00 05/29/19 17 Date of Last Pap Smear completed Dior Warren CT - [facility] 06/04/2017 09:19:29 03/14/20 16 Date of Last Colonoscopy completed Dior Warren CT - [facility] 06/04/2017 11:53:58 05/10/19 16 Q8H-GIU completed LOU HILLIARD MD [address], [address] Floor, [place], [address], [facility] 05/10/2015 11:55:49 05/10/19 16 M2Q-IKJ completed LOU HILLIARD MD [address], [address] Floor, [place], [address], [facility] 05/10/2015 11:55:49 05/10/19 16 Q2H-NJKNRVT completed LOU HILLIARD MD [address], [address] Floor, [place], [address], [facility] 05/10/2015 11:55:49 05/10/19 16 N1L-TVFFOR completed LOU HILLIARD MD [address], [address] Floor, [place], [address], [facility] 05/10/2015 11:55:49 09/13/19 09 Other completed LOU HILLIARD MD [address], [address] Floor, [place], [address], [facility] 06/04/2017 12:35:21 05/22/18 89 Caesarean Section completed LOU HILLIARD MD [address], [address] Floor, [place], [address], [place] - [facility] 06/04/2017 12:00:01 Kidney Stone completed Elizabeth Bernie CT - [facility] 07/24/2020 11:44:20 Orthopedic Surgery completed LOU HILLIARD MD [address] [facility], 3rd Floor, [place], [address], [place] - [facility] 06/04/2017 12:35:05 Imaging Results Imaging Date Name Status LastModified by Organiz ation Details LastModified Time 01/04/2019 ultrasound images completed [facility] [address] [facility] [address], [place], [address], 02/18/2019 11:02:32 01/04/2019 ultrasound images completed [facility] [address] [facility] [address], [place], [address], 02/18/2019 11:02:32 01/04/2019 ultrasound images completed [facility] [address] [facility] [address], [place], [address], 02/18/2019 11:02:32 10/27/2018 MAMMO, screening, digital, bilateral, w/ CAD completed [facility] Orders [address], [place], [address], 07/24/2020 12:15:19 10/30/2018 US, breast, unilateral [facility] [address] [place], [address], 07/24/2020 12:15:19 05/04/2019 [facility], [facility], [facility] not available 07/24/2020 12:15:19 01/27/2020 MAMMO, screening, digital, bilateral, w/ CAD completed [facility] [address], [place], [address], 07/24/2020 12:15:19 01/27/2020 MAMMO, screening, tomosynthesis, bilateral completed ejacunski [facility] Orders [address], [place], [address], 07/24/2020 12:15:19 04/10/2020 US, breast, bilateral active Information not available 07/24/2020 12:15:18 Procedure Notes None recorded. Medical Equipment None Reported. Allergies Allergen ID Allergen Name Allergen Category Reaction Reaction Severity Criticality Documentation Date Start Date Code Code System Note Provider Name and Address Organization Details Recorded Time 8409366 morphine medicatio n Not available Not available Not available 01/04/2019 7052 RxNorm Mohinijuan luis Brooks null, [facility] 9 10:08:31 105655 codeine medicatio n Not available Not available Not available 09/20/20142013 2670 RxNorm Not Available [facility] 5 09:36:03 153296 oxycodone hydrochlo ride medicatio n Not available Not available Not available 09/20/20142013 17332 RxNorm COMME NT: CAUSA TIVE AGENT : PERCO CET; Dior Warren null, [facility] 6 11:26:43 910042 acetamino phen medicatio n Not available Not available Not available 09/20/20142013 161 RxNorm COMME NT: CAUSA TIVE AGENT : PERCO CET; Dior Warren null, [facility] 6 11:26:43 189500 acetamino phen / oxycodone medicatio n Not available Not available Not available 05/10/2015 04114 3 RxNorm Dior Warren null, [facility] 6 11:26:43 567941 oxycodone medicatio n Not available Not available Not available 05/29/2016 7804 RxNorm Dior Warren null, [facility] 7 11:14:03 Medications Name Sig Start Date Stop Date Status Note LastModified by Organization Details LastModified Time cyclobenzap rine 10 mg tablet 02/27 completed Not Available Not Available Not Available amoxicillin 500 mg capsule 07/24 completed Not Available Not Available Not Available Mirena 21 mcg/24 hr (up to 8 years) 52 mg intrauterin e device Take 1 device by intrauter ine route. 2018 active Not Available Not Available Not Avai lable azithromyci n 250 mg tablet 03/15 completed Not Available Not Available Not Available fluconazole 150 mg tablet Take 1 tablet by oral route. 01/04 completed Not Available Not Available Not Available meloxicam 15 mg tablet 03/15 completed Not Available Not Available Not Available metronidazo le 0.75 % (37.5 mg/5 gram) vaginal gel Insert 1 applicato rful every day by vaginal route at bedtime for 5 days. 01/04 completed Not Available Not Available Not Available hydrocortis one 2.5 % topical cream with perineal applicator 03/15 completed Not Available Not Available Not Available naproxen sodium 550 mg tablet 01/04 completed Not Available Not Available Not Available Proctofoam HC 1 %-1 % 03/15 completed Not Available Not Available Not Available gabapentin 300 mg capsule Take 2 capsules 3 times a day by oral route. 03/15 completed Not Available Not Available Not Available diclofenac sodium 50 mg tablet,richelle yed release 02/27 completed Not Available Not Available Not Available hydromorpho ne 4 mg tablet 01/04 completed Not Available Not Available Not Available morphine 15 mg immediate release tablet 01/04 completed Not Available Not Available Not Available naproxen 500 mg tablet 02/27 completed Not Available Not Available Not Available neomycin 3.5 mg/g-polymy damari B 10,000 unit/g-dexa meth 0.1 % eye oint 02/27 completed Not Available Not Available Not Available ProAir HFA 90 mcg/actuati on aerosol inhaler 06/24 completed Not Available Not Available Not Available Amitiza 8 mcg capsule 03/15 completed Not Available Not Available Not Available Nasal Allergy 05/29 completed Not Available Not Available Not Available Vitals Date Recorded Body height Body mass index (BMI) Body weight Systolic blood pressure Diastolic blood pressure Provider Name and Address Organization Details Last Updated DateTime 02/27/2018 167.64 cm 28.2 kg/m2 66183.66 g 100 mm[Hg] 70 mm[Hg] Yadira Sharpeinguez [facility] 8 09:33:00 Date Recorded Body height Body mass index (BMI) Body weight Systolic blood pressure Diastolic blood pressure Provider Name and Address Organization Details Last Updated DateTime 06/24/2018 167.64 cm 30.8 kg/m2 69805.14 g 112 mm[Hg] 72 mm[Hg] Yaneth Lam [facility] 9 10:31:21 Date Recorded Body height Provider Name an d Address Organization Details Last Updated DateTime 01/04/2019 167.64 cm Yaneth Lam [facility] 01/04/2019 09:57:47 Date Recorded Body mass index (BMI) Body weight Systolic blood pressure Diastolic blood pressure Provider Name and Address Organization Details Last Updated DateTime 01/04/2019 27.1 kg/m2 09239.52 g 110 mm[Hg] 70 mm[Hg] Mohini Todd [facility] 01/04/2019 10:07:35 Date Recorded Body height Body mass index (BMI) Body weight Systolic blood pressure Diastolic blood pressure Provider Name and Address Organization Details Last Updated DateTime 02/18/2019 167.64 cm 26.8 kg/m2 47442.33 g 112 mm[Hg] 72 mm[Hg] Yaneth Genaro [facility] 9 10:47:43 Date Recorded Body weight Body mass index (BMI) Body height Systolic blood pressure Diastolic blood pressure Provider Name and Address Organization Details Last Updated DateTime 07/24/2020 68415.66 g 28.2 kg/m2 167.64 cm 108 mm[Hg] 70 mm[Hg] Yaneth Lam [facility] 1 12:07:26 Social History Question Answer Notes LastModified by Organizat ion Details LastModified Time Tobacco Smoking Status Never Smoker Dior dinero [facility] 05/10/2015 11:36:50 What Is Your Level Of Alcohol Consumption? Occasional Information not available 05/10/2015 Concerns About Meeting Basic Needs (food, Housing, Heat, Etc)? No Information not available 07/24/2020 Education 12 Information no t available 07/24/2020 Does Your Partner Physically Hurt You Or Threaten To Hurt You? No Information not available 06/04/2017 Has Your Partner Forced You To Have Sex Or Perform Sex Acts When You Did Not Want To? No Information not available 06/04/2017 Does Your Partner Insult, Scream At Or Talk Down To You? No Information not available 06/04/2017 Does Your Partner Control You Or Any Part Of Your Life? No Information not available 06/04/2017 Are You Afraid Of Your Partner? No 07/24/2020 Information not available 07/24/2020 Drug Use? No Information no t available 07/24/2020 Do You Feel Safe At Home? No Information not available 07/24/2020 What Was The Date Of Your Most Recent Tobacco Screening? 07/24/2020 Information not available 07/24/2020 How Much Tobacco Do You Smoke? No Information not available 07/24/2020 General Stress Level Medium Information not available 07/24/2020 Have You Recently Traveled Abroad? No Information not available 07/24/2020 Sex: Unknown Functional Status Question Answer Note LastModified by Organizat ion Details LastModified Time What is your exercise level? Occasional Information not available 06/04/2017 Mental Status None recorded. Family History Relationship Description Onset Age of this Age Resolved Age Notes LastModified by Organization Details LastModified Time Mother Hypertensive disorder [email or web address] Not available 2015 12:01:44 Father Well adult [email or web address] Not available 07/24/2020 11:44:20 Maternal Grandmother Malignant tumor of breast 66 [email or web address] Not available 2015 12:01:44 Paternal Grandmother Malignant tumor of colon ejacunski Not available 2015 12:01:44 Medical History Condition Response Kidney or Bladder Problems Y GI Problems Y Gynecological History Statement/Question Response Date of Last Mammogram 01/27/2020 Breast Biopsy Y Date of LMP 05/15/2018 IPV Screen Done 07/24/2020 Cervical Cancer N BrCa gene tested? N Ovarian Cancer N Date of Last Colonoscopy 03/14/2016 Breast Cancer N Last HPV Result Negative Abnormal Pap N BrCa Positive N Infertility N Breast Ultrasound Yes HPV Vaccine N Endometriosis N Current Control Method IUD Fibroids N Uterine Cancer N Current Control Method IUD-Mirena Sexually Active? Y Sexual Problems? N Date of Last Pap Smear 05/29/2016 Obstetrics History GPAL:G 1 P 0 0 0 1 Type Value Living 1 Total 1 Past Encounters Encounter ID Performer Location Encounter Start Date Encounter Closed Date Diagnosis/Indication Diagnosis SNOMED-CT Code Diagnosis ICD10 Code Diagnosis Note [id number] [id number] P [address] [place] [address] 01/07/2014 00:00:00 [id number] LOU HILLIARD MD [facility] [address] [place] [address] 05/10/2015 11:15:21 05/10/2015 12:13:34 Gynecologic examination 48766479 Z01.419 Screening mammography 24 764835 Z12.31 Vaginal discharge 499305 006 N89.8 Screening for malignant neoplasm of cervix 922792351 Z12.4 [id number] LOU HILLIARD MD [facility] [address] [place] [address] 04/25/2016 11:16:50 04/25/2016 12:39:28 Irregular periods 47340926 N92.6 Pain in pelvis 89342580 R10.2 Uses IUD (intrauterine device) contraception 215767046 Z97.5 [id number] LOU HILLIARD MD [facility] [address] [place] [address] 05/29/2016 10:45:54 05/29/2016 11:40:19 Gynecologic examination 92645043 Z01.419 Screening for malignant neoplasm of breast 693282521 Z12.39 Screening for malignant neoplasm of cervix 575121156 Z12.4 Z11.51 [id number] LOU HILLIARD MD [facility] [address] [place] [address] 06/04/2017 11:39:08 06/04/2017 12:34:03 Gynecologic examination 66466549 Z01.419 Screening for malignant neoplasm of breast 617769082 Z12.39 IUD check 221518680 Z30. 519 [id number] REGINALDO MATSON MD [facility] [address] [place] [address] 02/27/2018 09:02:32 02/27/2018 09:43:21 Acute vaginitis 71538576 N76.0 Prescripti on sent - take as prescribed BV culture taken - treat as indicated Call if symptoms persist [id number] LOU HILLIARD MD [facility] [address] [place] [address] 06/24/2018 09:55:47 06/24/2018 11:01:50 Gynecologic examination 24542841 Z01.411 GYNECOLOGI C EXAMINATIO N - Diet, exercise discussed. Patient lost 12 lbs due to diet and exercise last year, but gained 16 lbs. Patient had back injury, scheduled for surgery 07/16/2018. Diet discussed including WW. Pap smear guidelines discussed. Pap not done. IUD in place, placed 01/25/2014 , schedule replacemen t. s/p benign breast biopsy, right breast at 11 o'clock. 04/25/2017 Schedule mammogram, dense breast discussed. Screening for malignant neoplasm of breast 974505403 Z12.39 Vaginal discharge 037882 006 N89.8 Body mass index 30+ - obesity 349101346 Z68.30 IUD check 505569379 Z30. 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 IUD in place. [id number] LOU HILLIARD MD [facility] [address] [facility] [address] [place] [address] 07/24/2020 11:42:35 07/24/2020 12:29:59 Gynecologic examination 05129810 Z01.419 GYNECOLOGI C EXAMINATIO N - Diet, exercise discussed. Patient had back injury, s/p surgery 07/16/2018. Pap smear guidelines discussed. Pap done. IUD in place, replaced 01/04/2019. s/p benign breast biopsy, right breast at 11 o'clock. 04/25/2017 Screening for malignant neoplasm of breast 305598969 Z12.39 Screening for malignant neoplasm of cervix 459787773 Z12.4 Depression screening 171 059833 Z13.31 Health Concerns Section Related Observation LastModified by Organization Detai ls LastModified Time None Recorded Concern Status LastModified by Organization Details LastModified Time None Recorded Advance Directives Directive None Recorded Payers Encounter Date Sequence Insurance Name Policy Number Policy Hicks Covered Member ID Hicks Member ID Guarantor Name 02/27/2018 1 [facility] [id number] Lou A A Syrowik [id number] Lou A Syrowik 06/24/2018 1 [place] [facility] [id number] Jitendra S Syrowik [id number] Lou A Syrowik 01/04/2019 1 [place] [facility] [id number] Jitendra S Syrowik [id number] Lou A Syrowik 02/18/2019 1 [place] [facility] [id number] Jitendra S Syrowik [id number] Lou A Syrowik 07/24/2020 1 [place] [facility] [id number] Jitendra S Syrowik [id number] Lou A Syrowik Notes Date Note Type Note Provider Name and Address Organization Details Recorded Time 06/24/2018 text/html [facility] Annual GYNReported bypatient.History: irregular bleeding, mirena placed 2014 scheduled for back sx 07/16/2018 Current Contraception:Intr auterine device (iud) Preventive measures:Encourage self breast examination; Encourage regular exercise; Mammogram performed within the past year mirena placed? ? ? 01/2014 LOU HILLIARD MD [address] [facility] [place], [address], [facility] 06/24/2018 13:23:37 02/18/2019 text/html s/p Mirena replacement 01/04/2019 LOU HILLIARD MD [address] [facility] [place], [address], [facility] 02/18/2019 13:20:52 07/24/2020 text/html [facility] Annual GYNReported bypatient.History: mirena replaced 12/2018 back sx 07/16/2018 Current Contraception:Intr auterine device (iud) Preventive measures:Encourage self breast examination; Encourage regular exercise; Followed with Q3 year pap smear and high risk HPV typing; Mammogram performed within the past year; Needs to schedule colonoscopy declined mixing technician mirena placed? ? ? 01/2014 LOU HILLIARD MD [address] [facility] [facility], [place], [address], [facility] 07/24/2020 13:44:34 OBGyn Episode Ob Episode Information Episode Created Date Number of Fetuses Patient Bloodtype Patient rh Status Prepregnancy Weight lbs Domestic Partner Domestic Partner Phone Father Name Intelligence Director Status 01/19/20 15 1 DELETED Levon Calculation Initial Levon Date Initial Exam Date Initial Exam Provider Initial Ultrasound Date Last Menstrual Period Date Ultra Sound Weeks Gestation 0 Eighteen To Twenty Week Levon Update Ultra Sound Date Fundal Height At Umbil Quickening Date Ultra Sound Latest Weeks Gestation Final Levon Confirmed By Final Levon Confirmed Date Final Levon Date Ultra Sound Latest Days Gestation 0 0 Menstrual History Last Menstrual Date Menses Monthly On Bcp Conception Prior Menses Frequency Hcg Plus Date Menarche Onset Age Delivery Information Delivery Date Delivery Type Labor Anesthesia Weeks Gestation Incision Type Labor Labor Length Hrs Delivered By Post Complications Tubal Sterilization Discharge Date Comments 3 Discharge Information Feeding Method Contraceptive Method Maternal HG B and HCT Levels Ob Episode Information Episode Created Date Number of Fetuses Patient Bloodtype Patient rh Status Prepregnancy Weight lbs Domestic Partner Domestic Partner Phone Father Name Intelligence Director Status 01/19/20 15 1 DELETED Levon Calculation Initial Levon Date Initial Exam Date Initial Exam Provider Initial Ultrasound Date Last Menstrual Period Date Ultra Sound Weeks Gestation 0 Eighteen To Twenty Week Levon Update Ultra Sound Date Fundal Height At Umbil Quickening Date Ultra Sound Latest Weeks Gestation Final Levon Confirmed By Final Levon Confirmed Date Final Levon Date Ultra Sound Latest Days Gestation 0 0 Menstrual History Last Menstrual Date Menses Monthly On Bcp Conception Prior Menses Frequency Hcg Plus Date Menarche Onset Age Delivery Information Delivery Date Delivery Type Labor Anesthesia Weeks Gestation Incision Type Labor Labor Length Hrs Delivered By Post Complications Tubal Sterilization Discharge Date Comments 6 Discharge Information Feeding Method Contraceptive Method Maternal HG B and HCT Levels Ob Episode Information Episode Created Date Number of Fetuses Patient Bloodtype Patient rh Status Prepregnancy Weight lbs Domestic Partner Domestic Partner Phone Father Name Intelligence Director Status 05/10/19 16 1 CLOSED Fetus Data First Name Last Name Admitted to NICU Weight (g) Sex Living Outcome Pediatric Complications Fetus ID Race Codes Race Delivery Type M [id number] - Primary Levon Calculation Initial Levon Date Initial Exam Date Initial Exam Provider Initial Ultrasound Date Last Menstrual Period Date Ultra Sound Weeks Gestation 0 Eighteen To Twenty Week Levon Update Ultra Sound Date Fundal Height At Umbil Quickening Date Ultra Sound Latest Weeks Gestation Final Levon Confirmed By Final Levon Confirmed Date Final Levon Date Ultra Sound Latest Days Gestation 0 0 Menstrual History Last Menstrual Date Menses Monthly On Bcp Conception Prior Menses Frequency Hcg Plus Date Menarche Onset Age Delivery Information Delivery Date Delivery Type Labor Anesthesia Weeks Gestation Incision Type Labor Labor Length Hrs Delivered By Post Complications Tubal Sterilization Discharge Date Comments 9 Discharge Information Feeding Method Contraceptive Method Maternal HG B and HCT Levels
--- OUTSIDE RECORDS SUMMARY | 2024-08-13 07:29 | XMS_ITS | Clinical Summary ---
Author Organization [facility] Address [address] [place] [address] Care Team Providers Care Medical Records Specialist Name Role Phone Samira Rocha MD Primary Care Provider [phone] Social History Tobacco Use Types Packs/Day Years [...] age to complete this topic Care Teams Medical Records Specialist Relationship Specialty Start Date End Date Samira Rocha MD [address] [facility] [place] [address] PCP - General Bottoming Room Supervisor 10/27/17
== END 2024-08-13 07:28 | disposition home or self-care (01) ==
LOC: HO.CT 07:27
PROVIDERS: PCP Internal Medicine; Visit Provider Internal Medicine
DX: R51.9 Headache, unspecified (principal)
CPT/HCPCS: 70450

== ENCOUNTER → 2024-08-13 07:30 | Outpatient (BNV) | payer OTHER, SELFPAY | PROVIDERS: PCP Internal Medicine; Visit Provider Radiology Diagnostic Radiology | DX: R51.9 Headache, unspecified (principal) | CPT/HCPCS: 70450 ==

== ENCOUNTER 2024-12-16 07:17 | Outpatient (REF) | payer OTHER, SELFPAY ==
--- OUTSIDE RECORDS SUMMARY | 2024-12-16 07:20 | XMS_ITS | Encounter Summary ---
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 Procedures physical therapy Jitendra Le MD Phone: tel: fax: Mireille Liu PT Referral ID Status Reason Start Date Expiration Date Visits Re quested Visits Authorized [id number] Closed 02/10/2017 04/13/2017 25 25 Encounter Details Date Type Department Care Team (Latest Contact Info) Description 03/11/2017 Transcribe Orders [facility] [address] [place] [address] Eloina Martinez [address] [place] [id number] [email or web address] Encounter for rehabilitation (Primary Dx) Social History Tobacco Use Types Packs/Day Years Used Date Smoking Tobacco: Never Assessed Comments Unknown Sex and Gender Information Value Date Recorded Sex Assigned at Female 12/24/2021 11:54 AM EDT Legal Sex Female 5:26 PM EDT Gender Identity Female 12/24/2021 11:54 AM EDT Sexual Orientation Straight 12/24/2021 11 :54 AM EDT documented as of this encounter Plan of Treatment Scheduled Referrals Name Type Priority Associated Diagnoses Orde r Schedule Ambulatory referral to [facility] Physical Therapy Outpatient Referral Routine Encounter for rehabilitation Ordered: 03/11/2017 documented as of this encounter Visit Diagnoses Diagnosis Encounter for rehabilitation- Primary documented in this encounter Care Teams Vocational Technical Education Teacher Relationship Specialty Start Date End Date Samira Rocha MD [facility] [place] [address] PCP - General Internal Medicine 02/10/17 documented as of this encounter Additional Source Comments The information contained in this document represents components of the legal health record. It is not the complete legal health record.[facility]
--- OUTSIDE RECORDS SUMMARY | 2024-12-16 07:20 | XMS_ITS | Clinical Summary ---
Author Organization [facility] Address [address] [place] [address] Care Team Providers Care [address] Freight Name Role Phone Samira Rocha MD Primary Care Provider [phone] Social History Tobacco Use Types Packs/Day Years [...] (1 of 2) 2019 Influenza Vaccine (#1) 2024 Pneumococcal Vaccine Aged Out No long er eligible based on patient's age to complete this topic RSV Ped < 20 months Aged Out No longe r eligible based on patient's age to complete this topic Care Teams [address] Freight Relationship Specialty Start Date End Date Samira Rocha MD [address] [facility] [place] [address] PCP - General Foundry Hand 10/27/17
--- OUTSIDE RECORDS SUMMARY | 2024-12-16 07:20 | XMS_ITS | Clinical Summary ---
Author Organization [facility] Address [address] [place] [address] Phone Care Team Providers Care Watch Electrician Name Role Phone Samira Rocha MD Primary Care Provider [phone] Allergies Active Allergy Reactions Criticality Noted Date Comments Codeine 02/12/2022 Erythromycin GI Upset 02/12/2022 Hydrocodone Palpitations Low 02/12/2022 Morphine 02/12/2022 Opioids-Meperidine And Related 02/12 Oxycodone Palpitations Low 02/12/2022 Oxycodone-Acetaminophen Palpitations Low 02/12/2022 Tramadol Palpitations Low 02/12/2022 Medications montelukast (SINGULAIR) 10 mg tablet Take 10 mg by mouth nightly at bedtime. Active famotidine (PEPCID) 20 MG tablet Take 20 mg by mouth 2 (two) times a day. Active levocetirizine (XYZAL) 5 MG tablet Take 5 mg by mouth every evening. Active cetirizine (ZYRTEC) 10 MG tablet Take 10 mg by mouth daily. Active budesonide/glyc opyr/formoterol (BREZTRI AEROSPHERE INHL) Inhale into the lungs. Active albuterol 90 mcg/actuation inhaler Inhale 2 puffs into the lungs every 6 (six) hours as needed for wheezing. Active triamcinolone (NASACORT AQ) 55 mcg/actuation nasal inhaler 2 sprays by Nasal route daily. Active Active Problems No known active problems Immunizations Immunization Administration Dates Next Due BCG 12/25/2020 COVID-19 (Pre-02/03) Pfizer Vaccine, mRNA, PF 10/08/2021,12/19/2020,11/28/2020 Hepatitis B Adult 12/22/2020,12/22/2020 INFLUENZA, SPLIT VIRUS, TRIVALENT PF 02/04/2024 Influenza Quadrivalent Preservative Free IM 10/0 09/2022,01/25/2022,01/25/2021 Tdap 11/28/2015 Social History Tobacco Use Types Packs/Day Years Used Date Smoking Tobacco: Never Smokeless Tobacco: Never Education Answer Date Recorded Are you interested in more education? Not on raymundo e 08/09/2022 Are you concerned about learning? Not on file 08/09/2022 No 08/09/2022 No 08/09/2022 Digital Access Answer Date Recorded No 09/07/2022 No 09/07/2022 No 09/07/2022 Reliable internet access at home? Not on file 09/07/2022 Device with a working camera? Not on file Comments Unknown Sex and Gender Information Value Date Recorded Sex Assigned at Female 12/24/2021 11:54 AM EDT Legal Sex Female 5:26 PM EDT Gender Identity Female 12/24/2021 11:54 AM EDT Sexual Orientation Straight 12/24/2021 11 :54 AM EDT Last Filed Vital Signs Vital Sign Reading Time Taken Comments Blood Pressure 124/84 02/12/2022 1:21 PM EDT Pulse 93 02/12/2022 1:21 PM EDT Temperature - - Respiratory Rate - - Oxygen Saturation 95% 02/12/2022 1:21 PM EDT Inhaled Oxygen Concentration - - Weight 90.7 kg (200 lb) 02/12/2022 1:21 PM EDT Height 167.6 cm (5' 6 ) 02/12/2022 1:21 PM EDT Body Mass Index 32.28 02/12/2022 1:21 PM EDT Plan of Treatment Health Maintenance Due Date Last Done Comments LIPID PANEL 1969 DEPRESSION SCREENING 1981 HEPATITIS C SCREENING 1987 HIV ONE-TIME SCREENING (18-65 YEARS) 1987 PAP SMEAR 1990 SCREENING FOR DIABETES 2004 MAMMOGRAM 2009 COLOGUARD 2014 COLONOSCOPY 2014 COLORECTAL CANCER SCREENING 2014 FIT TEST 2014 FOBT 2014 SIGMOIDOSCOPY 2014 VIRTUAL COLONOSCOPY 2014 PNEUMOCOCCAL VACCINES (50+ years) (1 of 1 - PCV) 2019 ZOSTER VACCINES (1 of 2) 2019 INFLUENZA VACCINE (#1) 2024 , 01/17/2023, 01/25/2022, Additional history exists COVID-19 VACCINE ( season) 2024 10/08/2021, 10/08/2021, 12/19/2020, Additional history exists Adult Td,Tdap Booster 11/27/2025 11/28/2015 SMOKING STATUS SCREENING (Once After 26 Yrs) Completed 02/12/2022 HEPATITIS A VACCINES Aged Out No long er eligible based on patient's age to complete this topic HIB VACCINES Aged Out No longer eligi ble based on patient's age to complete this topic MENINGOCOCCAL VACCINES (ACWY) Aged Out No longer eligible based on patient's age to complete this topic MENINGOCOCCAL VACCINES (B) Aged Out N o longer eligible based on patient's age to complete this topic Medical Devices Not on file Insurance [facility] [place] [id number] [facility] [employer] [facility] [employer] [facility] [employer] EMPLOYE[employer] FAMILY EMPLOYEES FAMILY EMPLOYEES FAMILY [facility] [employer] FAMILY [employer] [employer] FAMILY Care Teams Watch Electrician Relationship Specialty Start Date End Date Samira Rocha MD [address] [facility] [address] [place] [address] PCP - General Internal Medicine 02/10/17 Additional Source Comments The information contained in this document represents components of the legal health record. It is not the complete legal health record.[facility]
--- OUTSIDE RECORDS SUMMARY | 2024-12-16 07:20 | XMS_ITS | Clinical Summary ---
Author Organization [facility] Address [address] [place] [id number] Care Team Providers Care Clerical Aide Teacher Name Role Phone Unavailable Primary Care Provider [...]
[2024-12-17 09:34] LABS: Lyme Abs Screen <0.90 index
== END 2024-12-16 07:18 | disposition home or self-care (01) ==
LOC: HO.HMGCLDS 07:17
PROVIDERS: PCP Internal Medicine; Visit Provider Internal Medicine
DX: Z01.84 Encounter for antibody response examination (principal); W57.XXXA Bitten or stung by nonvenomous insect and other nonvenomous arthropods, initial encounter
CPT/HCPCS: 36415; 86617; 86618

== ENCOUNTER 2024-12-22 12:57 | Outpatient (REF) | payer OTHER, SELFPAY ==
[2024-12-22 17:25] LABS: Blood Urea Nitrogen 17 mg/dL (9-16); Estimated Glomerular Filt Rate > 60
== END 2024-12-22 12:58 | disposition home or self-care (01) ==
LOC: HO.HMGCLDS 12:57
PROVIDERS: PCP Internal Medicine; Visit Provider Internal Medicine
DX: G45.3 Amaurosis fugax (principal); R51.9 Headache, unspecified
CPT/HCPCS: 36415; 82565; 84520; 85652

== ENCOUNTER 2024-12-22 12:57 | Outpatient (AMB) | payer OTHER, SELFPAY ==
--- NOTE | 2024-12-22 13:17 | A.OFFPC_ITS ---
Vital Signs 12/22/24 13:18 Height 5 ft 6 in Weight 212 lb BMI 34.2 BP 106/74 Blood Pressure Location Lt brachial Position Sitting Respiration 18 Pulse 86 Pulse Source Pulse Oximeter Temp 98.0 F Temp Source Oral Pulse Oximetry (%) 96 Oxygen Delivery Method Room Air Intake Visit Reasons: Follow up on headaches Intake Note: Pt is here today for a follow up visit on headaches. Pt states that she is still getting headaches it starts in the back and travels to the fornt of her head. Allergies codeine Allergy (Unknown, Verified 12/22/24 13:21) vomiting palpitation oxycodone Allergy (Unknown, Verified 12/22/24 13:21) vomiting palpitations metoclopramide (From Reglan) Allergy (Verified 12/22/24 13:21) tingiling on face doxycycline Adverse Reaction (Verified 12/22/24 13:21) nausea vomiting tylenol with codeine Allergy (Mild, Uncoded 12/22/24 13:21) vomiting contrast Allergy (Uncoded 12/22/24 13:21) Hives Medication List - Last Reconciled 12/22/24 by Samira Rocha MD albuterol sulfate 90 mcg/actuation 1 inh inhalation QID PRN multivitamin 1 tab PO DAILY scopolamine base 1 patch transdermal Q3D PRN valacyclovir 2,000 mg (2 x 1 gram) PO Q12H 1 day Tobacco use date assessed: 12/22/24 Dental Screening Dental Screen Date: 12/22/24 Did you have a dental visit in the last 12 months?: Yes Did you have a dental problem in the last 6 months where you did not have access to dental care?: No Was dental information given to patient?: Patient has dentist HPI Follow up on headaches HPI Details Pt complains of a new onset of severe headache starting at occipital region and radiating to frontal, pulsing like and sharp occasionally at 10/10 in intensity for the last few days. Headache is associated with nausea and patient had an episode of vomiting. Patient had a transitional loss of vision in the temporal vision field of the right eye 2 days ago. She denies fever chills sinus congestion weakness or numbness in extremities, change in balance. [facility] Medical History Hiatal hernia Chronic rhinitis Chronic bronchitis Chronic cough Annual physical exam Asthma Enlarged thyroid Cough Allergies Anemia Lymphadenopathy, abdominal IBS (irritable bowel syndrome) Abdominal pain Hyperlipemia Hyperlipidemia Hemorrhoids Surgical History Hx of carpal tunnel repair H/O spinal fusion H/O colonoscopy No pertinent past surgical history Family History Father No problems noted. 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 1. Little interest or pleasure in doing things: not at all 2. Feeling down, depressed, or hopeless: not at all 3. Trouble falling or staying asleep, or sleeping too much: not at all 4. Feeling tired or having little energy: not at all 5. Poor appetite or overeating: not at all 6. Feeling bad about yourself - or that you are a failure or have let yourself or your family down: not at all 7. Trouble concentrating on things, such as reading the newspaper or watching television: not at all 8. Moving or speaking so slowly that other people could have noticed. Or the opposite - being so fidgety or restless that you have been moving around a lot more than usual: not at all 9. Thoughts that you would be better off or of hurting yourself in some way: not at all Total score: 0 Depression Screening Interpretation: Negative Depression Screening Done: Yes Source: Developed by Drs. Arnold Kilgore, Viry Cabrera, David Hall and colleagues, with an educational miguelangel from [employer]. Thrive Questionnaire Date Thrive assessed: 07/06/24 I am a: Patient What is your living situation today?: I have a steady place to live Within the past 12 months, did the food you bought not last and you didn't have the money to get more?: Never true Within the past 12 months, did you worry whether your food would run out before you got money to buy more?: Never true Do you have trouble paying for medicines?: No Do you have trouble getting transportation to medical appointments?: No Do you have trouble paying your heating and electricity bill?: I choose not to answer this question Do you have trouble taking care of your child, family member or friend?: No Do you have trouble with day-to-day activities such as bathing, preparing meals, shopping, managing finances, etc.?: No Are you currently unemployed and looking for a job?: No Are you interested in more education?: Yes Please select the resources that you would like help with: None Currently or been in a relationship where the following occur: No concerns r eported THRIVE Score: 0 ALVERTO-7 AMB Questionnaire ALVERTO-7 Date ALVERTO - 7 assessed: 07/09/24 Feeling nervous, anxious, or on edge: 0 = Not at all Not being able to stop or control worryin = Not at all Worrying too much about different things: 0 = Not at all Trouble relaxin = Not at all Being so restless that it is hard to sit still: 0 = Not at all Becoming easily annoyed or irritable: 0 = Not at all Feeling afraid as if something awful might happen: 0 = Not at all Total ALVERTO-7 score (0-4 normal; 5-9 mild; 10-14 moderate; 15-21 severe): 0 Source: Developed by Drs. Arnold Kilgore, Viry Cabrear, David Hall and colleagues, with an educational miguelangel from [employer]. Review of Systems Const All systems reviewed & are unremarkable except as noted in HPI and below Eyes Reports no additional complaints ENT Reports no additional complaints Card Reports no additional complaints Resp Reports no additional complaints GI Reports no additional complaints Reports no additional complaints Physical exam (Primary Care) Vital Signs: Last Vital Signs Temp 98.0 F 12/22/24 13:18 Pulse 86 12/22/24 13:18 Resp 18 12/22/24 13:18 BP 106/74 12/22/24 13:18 Pulse Ox 96 12/22/24 13:18 Oxygen Delivery Method Room Air 12/22/24 13:18 BMI result Body Mass Index 34.2 Tobacco/Smoking Status: Tobacco use Status Tobacco use date assessed 12/22/24 12/22/24 13:23 Patient Tobacco Use Status Never used Tobacco 12/22/24 13:23 e-Cigarette/Vaping Use Never Used 12/22/24 13:23 PHQ-9: PHQ-9 Score PHQ-9: Total score 0 12/22/24 13:23 Depression Screening Interpretation: Negative Thrive Assessment: Date of Thrive Assessment Date Thrive assessed 07/06/24 12/22/24 13:23 Currently or been in a relationship where the following occur: No concerns reported Const General: no acute distress Orientation/consciousness: oriented to person HENMT Head: Yes normal to inspection Face and sinus: Yes normal facial exam Throat: Yes posterior oropharynx normal Eyes General: appearance normal, both eyes and all related structures Visual Alfonso: normal visual alfonso by confrontation Pupils: Equal, round and reactive pupils present EOM: EOMs intact bilaterally Direct Ophthalmoscopy: normal light reflex Neck Neck: Yes supple Resp Effort & Inspection: normal respiratory effort Auscultation: clear to auscultation bilaterally Cardio Rhythm: regular rhythm Heart sounds: S1 normal heart sound present and S2 normal heart sound present Neuro General: oriented to person Cranial nerves: Yes CN's II-XII intact bilaterally and Yes Equal, round and reactive pupils present Cognition (Neuro): normal cognition Gait exam (Neuro): Normal gait present Romberg Test: Negative Coding Level of Care Code Est Pt Level 3 (42725) Diagnoses New onset headache R51.9 Assessment & Plan Assessment & Plan (1) New onset headache: Code(s): R51.9 - Headache, unspecified Category: Medical Plan: For new onset of headache and transitional vision loss in the right eye obtain CT of the brain and CT angiogram of the head and neck to rule out CVA, aneurysm or stenosis. For any worsening symptoms patient was advised to go to the ER Orders: Orders CT angio head neck Today G45.3 - Amaurosis fugax, G45.9 - Transient cerebral ischemic attack, unspecified Blood Urea Nitrogen Today G45.3 - Amaurosis fugax, R51.9 - Headache, unspecified Erythrocyte Sedimentation Rate Today R51.9 - Headache, unspecified CT head/brain wo IV con Today R51.9 - Headache, unspecified Creatinine Today G45.3 - Amaurosis fugax, R51.9 - Headache, unspecified
[2024-12-22 13:18] VITALS: BP 106/74; PULSE 86; RESP 18; TEMP 36.7; O2SAT 96; BMI 34.2
--- OUTSIDE RECORDS SUMMARY | 2024-12-22 15:58 | XMS_ITS | Clinical Summary ---
Author Organization [facility] Address [address] [place] [id number] Care Team Providers Care Office Technician Name Role Phone Unavailable Primary Care Provider [...] Vaccine (1 of 2) 2019 COVID-19 Vaccine (1 - season) 2024
--- OUTSIDE RECORDS SUMMARY | 2024-12-22 15:58 | XMS_ITS | Clinical Summary ---
Author Organization [facility] Address [address] [place] [address] Care Team Providers Care Salesperson Florist Supplies Name Role Phone Samira Rocha MD Primary Care Provider [phone] Social History Tobacco Use Types Packs/Day Years [...] age to complete this topic Care Teams Salesperson Florist Supplies Relationship Specialty Start Date End Date Samira Rocha MD [address] [facility] [place] [id number] PCP - General Steward/Stewardess Wine 10/27/17
--- OUTSIDE RECORDS SUMMARY | 2024-12-22 15:58 | XMS_ITS | Encounter Summary ---
Author Organization [facility] Address [address] [place] [phone] Phone Care Team Providers Care Inker Name Role Phone Samira Rocha MD Primary [...] Expiration Date Visits Re quested Visits Authorized [id number] Closed 02/10/2017 04/13/2017 25 25 Encounter Details Date Type Department Care Team (Latest Contact Info) Description 03/11/2017 Transcribe Orders [facility] [address] [place] [phone] Eloina Martinez [address] [place] [phone] [email or web address] Encounter for rehabilitation (Primary Dx) Social History [...] Diagnoses Orde r Schedule Ambulatory referral to [facility] Physical Therapy Outpatient Referral Routine Encounter for rehabilitation Ordered: 03/11/2017 documented as of this encounter Visit Diagnoses Diagnosis Encounter for rehabilitation- Primary documented in this encounter Care Teams Inker Relationship Specialty Start Date End Date Samira Rocha MD [facility] [place] [address] PCP - General Internal Medicine 02/10/17 documented as of this encounter Additional Source Comments The information contained in this document represents components of the legal health record. It is not the complete legal health record.[facility]
--- OUTSIDE RECORDS SUMMARY | 2024-12-22 15:58 | XMS_ITS | Clinical Summary ---
Author Organization [facility] Address [address] [place] [phone] Phone Care Team Providers Care Network Support Specialist Name Role Phone Samira Rocha MD Primary Care Provider [phone] Allergies Active Allergy Reactions Criticality Noted Date [...] topic Medical Devices Not on file Insurance [facility] [place] [id number] [facility] [employer] FAMILY [facility] [employer] FAM[employer] [facility] [employer] EMPLOYE[employer] FAMILY EMPLOYEES FAMILY EMPLOYEES FAMILY [facility] [employer] FAMILY [facility] [employer] FAMILY Care Teams Network Support Specialist Relationship Specialty Start Date End Date Samira Rocha MD [address] [facility] [address] [place] [address] PCP - General Internal Medicine 02/10/17 Additional Source Comments The information contained in this document represents components of the legal health record. It is not the complete legal health record.[facility]
== END 2024-12-22 14:02 | disposition home or self-care (01) ==
LOC: HO.HMCC 12:58
PROVIDERS: PCP Internal Medicine; Visit Provider Internal Medicine
DX: R51.9 Headache, unspecified (principal)

== ENCOUNTER 2025-01-11 15:10 | Outpatient (REF) | payer OTHER, SELFPAY ==
--- NOTE | ~2025-01-11 | CT_ITS ---
EXAMINATION: CT ANGIOGRAM HEAD AND NECK CLINICAL INFORMATION: Amaurosis fugax. COMPARISON: No prior CTA. CTA head 08/13/2024. TECHNIQUE: Noncontrast axial imaging of the head was performed. This was followed by test bolus sequences and head and neck intravenous bolus administration 85 mL of Omnipaque 350. Helical imaging was performed in the axial plane from the aortic arch to the skull vertex. The data was processed at the certified ophthalmic technologist's workstation for generation of MIP sequences. Angled MIPs and volume rendered reformatted images were also generated at an offline 3D workstation. Stenoses are assessed in accordance with NASCET criteria unless otherwise indicated. This CT examination was performed using dose optimization techniques as appropriate, variously including the following: *Automated exposure control *Adjustment of mA and/or kV according to patient size (this includes techniques or standardized protocols for targeted exams where dose is matched to indication/reason for exam; i.e. extremities or head) *Use of iterative reconstruction technique FINDINGS: NONCONTRAST HEAD CT: There is no evidence of intracranial hemorrhage or extra-axial fluid collection. There is no mass effect, or edema. No CT evidence of acute territorial infarct. Ventricles, sulci, and cisterns are normal in size and configuration for patient age. No hydrocephalus. No midline shift. No significant white matter abnormalities. Globes and orbital contents image normally. No extracranial soft tissue abnormalities. The paranasal sinuses, mastoid air cells, and tympanic cavities are normally aerated. No suspicious bony abnormalities. NECK CTA: -AORTIC ARCH: Normal in caliber. Mild atheromatous calcification. Three-vessel branching pattern. -GREAT VESSEL ORIGINS: Widely patent. No stenosis. -RIGHT COMMON CAROTID ARTERY: Normal in course and caliber to the level of the bifurcation. -CERVICAL RIGHT INTERNAL CAROTID ARTERY: Normal opacification without focal stenosis or occlusion. -LEFT COMMON CAROTID ARTERY: Normal in course and caliber to the level of the bifurcation. -CERVICAL LEFT INTERNAL CAROTID ARTERY: Normal opacification without focal stenosis or occlusion. -CERVICAL RIGHT VERTEBRAL ARTERY: Codominant. Normal in course and caliber into the skull base. -CERVICAL LEFT VERTEBRAL ARTERY: Normal in course and caliber into the skull base. OTHER, SOFT TISSUES: -No lymphadenopathy or mass. No abnormal fluid collection or soft tissue swelling. -Thyroid is mildly enlarged without focal nodule seen. -Imaged superior mediastinal structures normal. -Imaged lung apices clear. CTA OF THE BRAIN: -INTRACRANIAL INTERNAL CAROTID ARTERIES: No focal stenosis or occlusion. -RIGHT ANTERIOR CEREBRAL ARTERY: Normal A1 segment. Normal arborization of the distal segments. -LEFT ANTERIOR CEREBRAL ARTERY: Normal A1 segment. Normal arborization of the distal segments. -ANTERIOR COMMUNICATING ARTERY: Normal. -RIGHT MIDDLE CEREBRAL ARTERY: Normal M1 segment of the MCA without focal stenosis or occlusion. Normal arborization of the distal segments. -LEFT MIDDLE CEREBRAL ARTERY: Normal M1 segment of the MCA without focal stenosis or occlusion. Normal arborization of the distal segments. -RIGHT VERTEBRAL ARTERY V4: Normal in course and caliber. Normal PICA branch. -LEFT VERTEBRAL ARTERY V4: Normal in course and caliber. Normal PICA branch. -BASILAR ARTERY: Normal without focal stenosis or occlusion. Normal appearance of the proximal superior cerebellar arteries. Normal basilar tip. -RIGHT POSTERIOR CEREBRAL ARTERY: Normal P1 segment. Normal opacification of the distal CHIMNEY SWEEPER segments. -LEFT POSTERIOR CEREBRAL ARTERY: Normal P1 segment. Normal opacification of the distal CHIMNEY SWEEPER segments. -POSTERIOR COMMUNICATING ARTERIES: The right is present but diminutive. The left is not well seen. Normal opacification of the superior sagittal, straight, transverse, and sigmoid sinuses. No venous thrombosis. No space-occupying hemorrhage or definite evolving infarct. CT/CT angio head neck IMPRESSION: NON-CONTRAST HEAD CT: 1. No intracranial hemorrhage or mass effect. No CT evidence of acute territorial infarct. CTA NECK: 1. No evidence of significant stenosis, occlusion, dissection, or aneurysm in the major cervical arterial vasculature. CTA HEAD: 1. No evidence of significant stenosis, occlusion, dissection, or aneurysm in the major intracranial arterial vasculature. 2. The major cortical and dural venous sinuses are patent. Electronically signed by: Eddie Lane MD 01/12/2025 08:39 AM EDT
--- OUTSIDE RECORDS SUMMARY | 2025-01-11 16:32 | XMS_ITS | Encounter Summary ---
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 Procedures physical therapy Jitendra Le MD Phone: tel: fax: Mireille Liu PT Referral ID Status Reason Start Date Expiration Date Visits Re quested Visits Authorized [id number] Closed 02/10/2017 04/13/2017 25 25 Encounter Details Date Type Department Care Team (Latest Contact Info) Description 03/11/2017 Transcribe Orders [facility] [address] [place] [phone] Eloina Martinez [address] [place] [phone] [email or web address] Encounter for rehabilitation (Primary Dx) Social [...] Diagnoses Orde r Schedule Ambulatory referral to [facility] Physical Therapy Outpatient Referral Routine Encounter for rehabilitation Ordered: 03/11/2017 documented as of this encounter Visit Diagnoses Diagnosis Encounter for rehabilitation- Primary documented in this encounter Care Teams Scrap Materials Buyer Relationship Specialty Start Date End Date Samira Rocha MD [facility] [place] [address] PCP - General Internal Medicine 02/10/17 documented as of this encounter Additional Source Comments The information contained in this document represents components of the legal health record. It is not the complete legal health record.[facility]
--- OUTSIDE RECORDS SUMMARY | 2025-01-11 16:32 | XMS_ITS | Data Portability ---
Author Organization [place] - [facility], [facility] Address [id number] [place] [address] Care Team Providers Care Information Security Officer Name Role Phone AILYN CORREA Primary Care Provider Assessment No assessment recorded. Plan of Treatment Reminders Order Date Submit Date Provider Last Modified By Organization Details Last Modified Time Details Appointments None recorded. Lab urinalysis , dipstick 2020 021 [email or web address] In-Office Order, Internal Use Only DO Not Attach Compendium DO Not Attach Compendium, Do Not Delete/merge, [id number] 1 13:43:48 pap, IG + HPV - normal exam 2020 021 [facility], [address] [place] [address], [address] 1 14:26:33 test, urine 2018 019 ejacunski In-Office Order, Internal Use Only DO Not Attach Compendium DO Not Attach Compendium, Do Not Delete/merge, [id number] 9 18:21:39 CT + NG DNA, PCR, unspecifie d specimen 2018 019 [facility], [address] [place], [address] 9 10:53:14 bacterial vaginosis + vaginitis panel, vaginal 2018 019 [facility], [address] [place], [address] 9 12:54:36 urinalysis , dipstick 2018 019 ejacunski In-Office Order, Internal Use Only DO Not Attach Compendium DO Not Attach Compendium, Do Not Delete/merge, [id number] 9 13:23:34 bacterial vaginosis + vaginitis panel, vaginal 2017 018 [facility], [address] [place], [address] 8 12:28:56 Referral None recorded. Procedures None recorded. Surgeries None recorded. Imaging MAMMO, screening, tomosynthe sis, bilateral, w/ CAD 2020 021 [facility] Orders, [address], [place], [address], 2 10:32:05 MAMMO, screening, digital, bilateral, w/ CAD 2018 019 [facility] Orders, [address], [place], [address], 9 09:34:18 Medication Orders Mirena 21 mcg/24 hr (up to 8 years) 52 mg intrauteri ne device 2018 019 ejacunski Not available 9 18:30:21 Diflucan 150 mg tablet 2017 018 [email or web address] [facility] #[id number], [address] [place] [address], [address], 9 10:08:03 Patient TargetsNo targets recorded. Patient Instructions Encounter Date Encounter Id Patient Instructions Last Modified By Organization Details Last Modified Time 06/24/2018 [id number] learning about healthy weight ejacunski Not available [...] discussed. raffi Not available 06/24/2018 13:22:56 01/04/2019 [id number] Return to the office in 6 weeks and as needed. ejacunski Not available 01/04/2019 18:21:38 02/18/2019 [id number] Return to the office for annual exam and as needed. ejacunski Not available 02/18/2019 13:19:37 07/24/2020 [id number] self breast exam education ejacunski Not available 07/24/2020 13:43:48 tips to help you stay healthy ejaclucianki Not available 07/24/2020 13:43:48 She has been amanda d to schedule a well woman Supervisor Fertilizer exam in one year and to call us with any question or concerns regarding her health and welfare. [email or web address] Not available 07/24/2020 13:43:13 Patient presents for [...] completed and reviewed with patient. Negative findings. rafaelki Not available 07/24/2020 13:43:42 Reason for Referral None Reported. Results Created Date Observation Date Name Description Value Unit Range Abnormal Flag Note LastModifiedBy Organization Detail LastModifiedTime 02/28/20 18 02/28/2018 bacte rial vagin osis + vagin itis panel , vagin al trichomonas vaginalis DNA Negati ve negati ve Not Available [facility] [address] [place], [address] 02/28/2018 12:28:56 02/28/20 18 02/28/2018 bacte rial vagin osis + vagin itis panel , vagin al gardnerella vaginalis DNA Positi ve negati ve abnormal Not Available [facility] [address] [place], [address] 02/28/2018 12:28:56 02/28/20 18 02/28/2018 bacte rial vagin osis + vagin itis panel , vagin al pato species DNA Negati ve negati ve Not Available [facility] [address] [place], [address] 02/28/2018 12:28:56 06/25/19 19 06/26/2018 bacte rial vagin osis + vagin itis panel , vagin al trichomonas vaginalis DNA NOT DETECT ED not detect ed Not Available [facility] [address] [place], [address] 06/26/2018 12:54:36 06/25/19 19 06/26/2018 bacte rial vagin osis + vagin itis panel , vagin al gardnerella vaginalis DNA DETECT ED not detect ed abnormal Incre ased level s of G. vagin delbert may not be signi fican t in the absen ce of signs and sympt oms of bacte rial vagin osis. Not Available [facility] [address] [place], [address] 06/26/2018 12:54:36 06/25/19 19 06/26/2018 bacte rial vagin osis + vagin itis panel , vagin al pato species DNA NOT DETECT ED not detect ed Not Available [facility] [address] [place], [address] 06/26/2018 12:54:36 06/25/1906/24/2018 urina lysis , dipst ick Protein Negati ve Not Available In-Office Order Internal Use Only DO Not Attach Compendium DO Not Attach Compendium, Do Not Delete/merge, [id number] 06/24/2018 10:32:45 06/25/19 19 06/24/2018 urina lysis , dipst ick Glucose Negati ve Not Available In-Office Order Internal Use Only DO Not Attach Compendium DO Not Attach Compendium, Do Not Delete/merge, [id number] 06/24/2018 10:32:45 01/05/2001/06/2019 CT + NG DNA, PCR, unspe cifie d speci men chlamydia trachomatis RNA, tma, urogenital NOT DETECT ED not detect ed normal Not Available [facility] [address] [place], [address] 01/06/2019 10:53:14 01/05/20 19 01/06/2019 CT + NG DNA, PCR, unspe cifie d speci men neisseria gonorrhoeae RNA, tma, urogenital NOT DETECT ED not detect ed normal Not Available [facility] [address] [place], [address] 01/06/2019 10:53:14 01/05/2001/06/2019 CT + NG DNA, PCR, unspe cifie d speci men comment This test was perfo rmed using the APTIM A COMBO 2 Assay ([employer] . The marisol tical perfo rmanc e fortunato cteri stics of this assay , when used to test SureP ath speci mens have been deter mined by [facility] bennie pozo Not Available [facility] [address] [place], [address] 01/06/2019 10:53:14 01/05/2001/04/2019 pregn cuca test, urine Result negati ve Not Available In-Office Order Internal Use Only DO Not Attach Compendium DO Not Attach Compendium, Do Not Delete/merge, [id number] 01/04/2019 09:55:59 07/25/1907/24/2020 HPV DNA, high- risk [...] types from this sourc e Not Available [facility] [address] [place], [address] 07/26/2020 14:26:30 07/25/1907/24/2020 pap, IG + HPV report Report Final Gynec ologi song Cytol ogy Repor t ----- ----- ----- ----- ----- ----- ----- ----- ----- ----- ----- ----- ThinP rep Pap Test, HPV Scree n, Refle x HPV Genot ype SPECI MEN ADEQU ACY: SATIS FACTO RY FOR EVALU ATION ; ENDOC ERVIC AL/TR ANSFO RMATI ON ZONE COMPO NENT PRESE NT. INTER PRETA TION: NEGAT BRAYDEN FOR INTRA EPITH ELIAL LESIO N OR LIN FONTENOT . Elect matthew Hanks d: Demi Fox, [place] (ASCP ) ----- ----- ----- ----- ----- ----- ----- ----- ----- ----- ----- ----- CLINI SONG INFOR MATIO N: LMP: NG Speci men Sourc e: Cervi x, Endoc ervix HPV RESUL TS: HPV mRNA E6/E7 [id number] Appro mary ann: 07/25 Negat brayden REF RANGE : Negat brayden CPT Codes : 26541 ICD Codes : Z12.4 Not Available [facility] [address] [place], [address] 07/26/2020 14:26:33 07/25/19 21 07/24/2020 urina lysis , dipst ick Protein Negati ve Not Available In-Office Order Internal Use Only DO Not Attach Compendium DO Not Attach Compendium, Do Not Delete/merge, [id number] 07/24/2020 09:25:42 07/25/19 21 07/24/2020 urina lysis , dipst ick Glucose Negati ve Not Available In-Office Order Internal Use Only DO Not Attach Compendium DO Not Attach Compendium, Do Not Delete/merge, [id number] 07/24/2020 09:25:42 01/05/20 19 01/04/2019 ultra sound image s RAD ejacunski [address] [address], [place], [address], 02/18/2019 11:02:32 01/05/20 19 01/04/2019 ultra sound image s RAD ejacunski [address], [place], [address], 02/18/2019 11:02:32 01/05/20 19 01/04/2019 ultra sound image s RAD [facility] [address], [place], [address], 02/18/2019 11:02:32 03/01/20 19 10/27/2018 MAMMO , scree javier, digit al, bilat eral, w/ CAD No observ ation record ed. [facility] Orders [address], [place], [address], 07/24/2020 12:15:19 03/03/20 19 10/30/2018 [place], breas t, unila teral No observ ation record ed. [facility] (Imaging) [address], [place], [address], 07/24/2020 12:15:19 06/16/19 20 05/04/2019 US, breas t, unila teral No observ ation record ed. ejaclucianki Not Available 2020 12:15:19 01/27/20 20 01/27/2020 MAMMO , scree javier, digit al, bilat eral, w/ CAD No observ ation record ed. [facility] [address], [place], [address], 07/24/2020 12:15:19 03/16/20 20 01/27/2020 MAMMO , scree javier, tomos ynthe sis, bilat eral No observ ation record ed. [facility] Orders [address], [place], [address], 07/24/2020 12:15:19 04/11/20 20 04/10/2020 US, breas t, bilat eral No observ ation record ed. ejacunski Not Available 2020 12:15:18 Result Notes None recorded. Problems Name Problem SNOMED Code Status Onset Date Resolution Date Notes Provider Name and Address Organization Details Recorded Time Polyp of colon 47878295 Active colonosco py q 5 years LOU HILLIARD MD [address], [place], [address], [facility] 9 10:54:37 Prolapse d lumbar interver tebral disc 028079813 Active surgery 07/16/2018 LOU HILLIARD MD [address], [place], [place], [address] [place] [address] 4, [facility] 1 12:19:56 Hyperten sive disorder 20755920 Completed 01/18/2015 LOU HILLIARD MD [address], [place], [address] [place] [address] 4, [facility] 6 12:04:43 Asthma 723288416 Completed 01/18/2015 LOU HILLIARD MD [address], [place], [address] [place] [address] 4, [facility] 6 12:04:43 Acoustic neuritis 04481117 Completed 01/18/2015 LOU HILLIARD MD [address], [place], [address] [place] [address] 4, [facility] 6 12:04:43 Inconclu sive evaluati on finding 224374277 Completed 06/24/2018 DENSE BREAST, NL U/S LOU HILLIARD MD [address], [place], [address], [facility] 9 10:54:38 Kidney stone 72298688 Active LOU HILLIARD MD [address], [place], [address] [place] [address] 4, [facility] 6 12:04:43 Vaginal discharg e 264884403 Completed 07/24/2020 LOU HILLIARD MD [address], [place], [address], [facility] 12:19:40 Uses IUD (intraut erine device) contrace ption 925822422 Active MIRENA REPLACED 01/04/2019 LOU HILLIARD MD [address], [address] [facility], [place], [address], [facility] 9 11:34:36 Divertic ulosis of colon 208335538 Active 2018 LOU HILLIARD MD [address], [address] [place] [address], [place], [address], [facility] 9 10:53:29 Problem Notes None recorded. Procedures Surgical History Date Name Laterality Status Provider Name and Address Organization Details Recorded Time 01/27/20 20 Date of Last Mammogram completed Yaneth Lam [facility] 07/24/2020 09:22:11 01/05/20 19 IUD Removal & Insertion completed LOU HILLIARD MD [address] [place] [address], [address], [facility] 01/04/2019 18:20:21 04/25/19 18 Breast Biopsy completed LOU HILLIARD MD [address] [facility], [address] [place] [address], [address], [facility] 06/04/2017 12:15:13 05/29/19 17 Z6I-HSY completed LOU HILLIARD MD [address] [facility], [place], [address], [facility] 05/29/2016 21:04:08 05/29/19 17 D7Y-XRL completed LOU HILILARD MD [address] [place], [address], [facility] 05/29/2016 21:03:55 05/29/19 17 G3K-[id number] completed LOU HILLIARD MD [address], [place], [address], [place] [facility] 05/29/2016 21:03:50 05/29/19 17 L9I-SZQFHW completed LOU HILLIARD MD [address], [place], [address], [place] [facility] 05/29/2016 21:04:00 05/29/19 17 Date of Last Pap Smear completed Dior Warren [place] - [facility] 06/04/2017 09:19:29 03/14/20 16 Date of Last Colonoscopy completed Dior Warren CT - [facility] 06/04/2017 11:53:58 05/10/19 16 T5R-HCH completed LOU HILLIARD MD [address], [place], [address], [facility] - [facility] 05/10/2015 11:55:49 05/10/19 16 R4V-IVW completed LOU HILLIARD MD [address], [place], [address], [facility] - [facility] 05/10/2015 11:55:49 05/10/19 16 U7M-[id number] completed LOU HILLIARD MD [address], [place], [address], [facility] - [facility] 05/10/2015 11:55:49 05/10/19 16 O1O-VKICVO completed LOU HILLIARD MD [address], [place], [address], [facility] - [facility] 05/10/2015 11:55:49 09/13/19 09 Other completed LOU HILLIARD MD [address], [place], [address], [facility] - [facility] 06/04/2017 12:35:21 05/22/18 89 Caesarean Section completed LOU HILLIARD MD [address], [place], [address], [facility] 06/04/2017 12:00:01 Kidney Stone completed Elizabeth Gibbs [facility] 07/24/2020 11:44:20 Orthopedic Surgery completed LUO HILLIARD MD [address] [facility], [address], [place], [address], [facility] 06/04/2017 12:35:05 Imaging Results None recorded. Procedure Notes None recorded. Medical Equipment None Reported. Allergies Allergen ID Allergen Name Allergen Category Reaction Reaction Severity Criticality Documentation Date Start Date Code Code System Note Provider Name and Address Organization Details Recorded Time 8538420 morphine medicatio n Not available Not available Not available 01/04/2019 7052 RxNorm Mohini Brooks null, [facility] 9 10:08:31 805717 codeine medicatio n Not available Not available Not available 09/20/20142013 2670 RxNorm Not Available [facility] 5 09:36:03 603260 oxycodone hydrochlo ride medicatio n Not available Not available Not available 09/20/20142013 15941 RxNorm COMME NT: CAUSA TIVE AGENT : PERCO CET; Dior Warren null, [facility] 6 11:26:43 424175 acetamino phen medicatio n Not available Not available Not available 09/20/20142013 161 RxNorm COMME NT: CAUSA TIVE AGENT : PERCO CET; Dior Warren null, [facility] 6 11:26:43 206536 acetamino phen / oxycodone medicatio n Not available Not available Not available 05/10/2015 65443 3 RxNorm Dior Warren null, [facility] 6 11:26:43 382981 oxycodone medicatio n Not available Not available Not available 05/29/2016 7804 RxNorm Dior Warren null, [facility] 7 11:14:03 Medications Name Sig Start Date [...] Body mass index (BMI) Body weight Systolic And Diastolic Provider Name and Address Organization Details Last Updated DateTime 06/24/2018 167.64 cm 30.8 kg/m2 81349.14 g 112/72 mm[Hg] Yaneth Lam [facility] 06/24/2018 10:31:21 Date Recorded Body weight Body mass index (BMI) Body height Systolic And Diastolic Provider Name and Address Organization Details Last Updated DateTime 07/24/2020 25046.66 g 28.2 kg/m2 167.64 cm 108/70 mm[Hg] Yaneth Lam [facility] 07/24/2020 12:07:26 Date Recorded Body height Provider Name an d Address Organization Details Last Updated DateTime 01/04/2019 167.64 cm Yaneth Lam [facility] 01/04/2019 09:57:47 Date Recorded Body mass index (BMI) Body weight Systolic And Diastolic Provider Name and Address Organization Details Last Updated DateTime 01/04/2019 27.1 kg/m2 03413.52 g 110/70 mm[Hg] Mohini Brooks [facility] 01/04/2019 10:07:35 Date Recorded Body height Body mass index (BMI) Body weight Systolic And Diastolic Provider Name and Address Organization Details Last Updated DateTime 02/18/2019 167.64 cm 26.8 kg/m2 84965.33 g 112/72 mm[Hg] Yaneth Lam [facility] 02/18/2019 10:47:43 Date Recorded Body height Body mass index (BMI) Body weight Systolic And Diastolic Provider Name and Address Organization Details Last Updated DateTime 02/27/2018 167.64 cm 28.2 kg/m2 17270.66 g 100/70 mm[Hg] Yadira Hood [facility] 02/27/2018 09:33:00 Social History Question Answer Notes LastModified by Organizat ion Details LastModified Time Tobacco Smoking Status Never Smoker Dior dinero [facility] 05/10/2015 11:36:50 Concerns About Meeting Basic Needs (food, Housing, [...] ion Details LastModified Time What is your level of alcohol consumption? Occasional Information not available 05/10/2015 What is your exercise level? Occasional Information [...] Diagnosis SNOMED-CT Code Diagnosis ICD10 Code Diagnosis IMO Codes Diagnosis Note 5191321 HH_WHGP_O P [address] [place] [address] 01/07/2014 00:00:00 [id number] LOU HILLIARD MD [facility] [address] [place] [address] 05/10/2015 11:15:21 05/10/2015 12:13:34 Gynecologic examination 41469796 Z01.419 Screening mammography 24 758901 Z12.31 Vaginal discharge 514137 006 N89.8 Screening for malignant neoplasm of cervix 791303938 Z12.4 [id number] LOU HILLIARD MD [facility] [address] [place] [address] 04/25/2016 11:16:50 04/25/2016 12:39:28 Irregular periods 37531096 N92.6 Pain in pelvis 69567812 R10.2 Uses IUD (intrauterine device) contraception 659246516 Z97.5 [id number] LOU HILLIARD MD [facility] [address] [place] [address] 05/29/2016 10:45:54 05/29/2016 11:40:19 Gynecologic examination 07659407 Z01.419 Screening for malignant neoplasm of breast 368556009 Z12.39 Screening for malignant neoplasm of cervix 383776075 Z12.4 Z11.51 [id number] LOU HILLIARD MD [facility] [address] [place] [address] 06/04/2017 11:39:08 06/04/2017 12:34:03 Gynecologic examination 78100101 Z01.419 Screening for malignant neoplasm of breast 459202996 Z12.39 IUD check 705058402 Z30. 056 [id number] REGINALDO MATSON MD [facility] [place] [address] 02/27/2018 09:02:32 02/27/2018 09:43:21 Acute vaginitis 44267596 N76.0 Prescripti on sent - take as prescribed BV culture taken - treat as indicated Call if symptoms persist [id number] LOU HILLIARD MD [facility] [place] [address] 06/24/2018 09:55:47 06/24/2018 11:01:50 Gynecologic examination 20215619 Z01.411 GYNECOLOGI C EXAMINATIO N - Diet, [...] discussed. Screening for malignant neoplasm of breast 822629510 Z12.39 Vaginal discharge 413768 006 N89.8 Body mass index 30+ - obesity 943007054 Z68.30 IUD check 968162316 Z30. 443 [id number] LOU HILLIARD MD [facility] [place] [address] 01/04/2019 09:36:14 01/04/2019 11:52:38 Uses contraception 15869188 Z30.430 see IUD replacemen t note Venereal d isease screening 664361200 Z11.3 Cyst of ovary 70573548 N 83.209 resolved, by u/s today [id number] LOU HILLIARD MD [facility] [place] [address] 02/18/2019 10:13:21 02/18/2019 12:03:03 IUD check 982020684 Z30.431 Normal senior relationship manager exam. IUD in place. [id number] LOU HILLIARD MD [facility] [address] [facility] [address] [place] [address] 07/24/2020 11:42:35 07/24/2020 12:29:59 Gynecologic examination 45789854 Z01.419 GYNECOLOGI C EXAMINATIO N - Diet, exercise discussed. Patient had back injury, s/p surgery 07/16/2018. Pap smear guidelines discussed. Pap done. IUD in place, replaced 01/04/2019. s/p benign breast biopsy, right breast at 11 o'clock. 04/25/2017 Screening for malignant neoplasm of breast 002998329 Z12.39 Screening for malignant neoplasm of cervix 281217617 Z12.4 Depression screening 171 825030 Z13.31 Health Concerns Section Related Observation LastModified by Organization Detai ls LastModified Time None Recorded Concern Status LastModified by Organization Details LastModified Time None Recorded Advance Directives Directive None Recorded Payers Insurance Date Sequence Insurance Name Policy Number Policy Hicks Covered Member ID Hicks Member ID Guarantor Name 07/24/2020 1 [place] [facility] [id number] Jitendra S Syrowik [id number] Lou Jacklyn Syrowik 05/10/2015 1 *SELF PAY* Ew jacklyn Lirinao Syrowik 02/15/[address] [place] [address] [id number] Lou A A Syrowik [id number] Lou A Syrowik Notes Date Note Type Note Provider Name and Address Organization Details Recorded Time 9 text/html [facility] Annual GYNReported by PatientHistoryFor history, (irregular bleeding, mirena placed 2014scheduled for back sx 07/16/2018).ContraceptionF or current contraception, patient reportsintrauterine device (iud).Preventative measuresFor preventive measures, patient reportsencourage self breast examination,encourage regular exercise, andmammogram performed within the past year. mirena placed 01/2014 LOU HILLIARD MD [address] [facility], [address]rd [address], [place], [address], [place] [facility] 06/24/2018 13:23:37 9 text/html s/p Mirena replacement 01/04/2019 LOU HILLIARD MD [address] [facility], [address], [place], [address], [facility] 02/18/2019 13:20:52 1 text/html [facility] Annual GYNReported by PatientHistoryFor history, (mirena replaced 12/2018back sx 07/16/2018).ContraceptionF or current contraception, patient reportsintrauterine device (iud).Preventative measuresFor preventive measures, patient reportsencourage self breast examination,encourage regular exercise,followed with pap smear and high risk hpv typing every 3 years,mammogram performed within the past year, andneeds to schedule colonoscopy. 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 mirena placed 01/2014 LOU HILLIARD MD [address] [facility], [place], [address], [facility] 07/24/2020 13:44:34 OBGyn Episode Ob Episode Information Episode Created Date Number of Fetuses Patient Bloodtype Patient rh Status Prepregnancy Weight lbs Domestic Partner Domestic Partner Phone Father Name Process Project Engineer Status 01/19/20 15 1 DELETED Levon Calculation [...] Domestic Partner Domestic Partner Phone Father Name Process Project Engineer Status 01/19/20 15 1 DELETED Levon Calculation [...] Domestic Partner Domestic Partner Phone Father Name Process Project Engineer Status 05/10/19 16 1 CLOSED Fetus Data First Name Last Name Admitted to NICU Weight (g) Sex Living Outcome Pediatric Complications Fetus ID Race Codes Race Delivery Type M [id number] - Primary Levon Calculation Initial Levon Date [...]
--- OUTSIDE RECORDS SUMMARY | 2025-01-11 16:32 | XMS_ITS | Clinical Summary ---
Author Organization [facility] Address [address] [place] [address] Care Team Providers [employer] Architect Name Role Phone Unavailable Primary Care Provider [...]
--- OUTSIDE RECORDS SUMMARY | 2025-01-11 16:32 | XMS_ITS | Clinical Summary ---
Author Organization [facility] Address [address] [place] [address] Care Team Providers Care Brick Grader Name Role Phone Samira Rocha MD Primary Care Provider [phone] Social History Tobacco Use Types Packs/Day Years [...] age to complete this topic Care Teams Brick Grader Relationship Specialty Start Date End Date Samira Rocha MD [address] [facility] [place] [id number] PCP - General Medical Secretary 10/27/17
--- OUTSIDE RECORDS SUMMARY | 2025-01-11 16:32 | XMS_ITS | Clinical Summary ---
Author Organization [facility] Address [address] [place] [id number] Phone Care Team Providers Care Radial Saw Operator Name Role Phone Samira Rocha MD Primary Care Provider [phone] Allergies Active Allergy Reactions Criticality Noted Date [...] topic Medical Devices Not on file Insurance [facility] [employer] [id number] [facility] [employer] [facility] [employer] [facility] [employer] FAM[employer] EMPLOYEES FAMILY EMPLOYEES FAMILY [facility] [employer] FAMILY [facility] [employer] FAMILY Care Teams Radial Saw Operator Relationship Specialty Start Date End Date Samira Rocha MD [address] [facility] [address] [place] [id number] PCP - General Internal Medicine 02/10/17 Additional Source Comments The information contained in this document represents components of the legal health record. It is not the complete legal health record.[facility]
[2025-01-11] MEDS: iohexoL 350 MG/ML 100 ML INFUS..BTL IV (17:13)
== END 2025-01-11 15:11 | disposition home or self-care (01) ==
LOC: HO.CT 15:10
PROVIDERS: PCP Internal Medicine; Visit Provider Internal Medicine
DX: G45.3 Amaurosis fugax (principal); G45.9 Transient cerebral ischemic attack, unspecified
CPT/HCPCS: 70496; 70498; Q9967

== ENCOUNTER → 2025-01-11 15:12 | Outpatient (BNV) | payer OTHER, SELFPAY | PROVIDERS: PCP Internal Medicine; Visit Provider Radiology Diagnostic Radiology | DX: G45.3 Amaurosis fugax (principal) | CPT/HCPCS: 70496; 70498 ==